=== PATIENT | male | born 1960 | race Caucasian/White ===

== ENCOUNTER → 2016-08-29 | Outpatient (CLI) | payer BC ==
--- NOTE | 2016-08-29 15:31 | CR ---
EXAMINATION: Left hand HISTORY: Pain COMPARISON: None TECHNIQUE: 3 views FINDINGS/IMPRESSION: There is no acute osseous abnormality, dislocation, or fracture identified. Bon e mineralization and joint spaces appear normal. There are early osteoarthritic changes are noted at the first MCP joint.
== END | disposition home or self-care (01) ==
LOC: MW.CHORTHO 07:59
PROVIDERS: ATTEND Orthopaedic Surgery
DX: M79.642 Pain in left hand (principal); M19.042 Primary osteoarthritis, left hand
CPT/HCPCS: 73130-26-LT; 73130-LT

== ENCOUNTER 2017-05-30 08:31 | Day surgery (SDC) | payer BC ==
[~2017-05-30 08:31] MED LIST: Bupivacaine 25%/EPINEPHrine/PF 30 ML ONE
--- NOTE | 2017-05-30 08:59 | PCM.PREANE ---
Preanesthetic Assessment - Anesthesia/Transfusion/Family Hx Anesthesia History: Prior Anesthesia Without Reaction Other Type of Anesthesia Reaction Comment: Bernardo any known problems in past Family History of Anesthesia Reaction: No Transfusion History: No Prior Transfusion(s) - Review of Systems General: No Symptoms Pulmonary: No Symptoms Cardiovascular: No Symptoms Gastrointestinal: No Symptoms Neurological: No Symptoms Other: Reports: None - Physical Assessment NPO Status Date: 05/29/17 Height: 1.52 m Weight: 115.212 kg ASA Class: 2 Mental Status: Alert & Oriented x3 Airway Class: Mallampati = 2 Dentition: Reports: Normal Dentition ROM/Head Extension: Full Lungs: Clear to Auscultation, Normal Respiratory Effort Cardiovascular: Regular Rate, Regular Rhythm - Allergies Allergies/Adverse Reactions: Allergies Allergy/AdvReac Type Severity Reaction Status Date / Time ChloraPrep One [employer] Allergy Burning Uncoded 05/25/16 18:14 - Acknowledgements Anesthesia Type Planned: MAC Pt an Appropriate Candidate for the Planned Anesthesia: Yes Alternatives and Risks of Anesthesia Discussed w Pt/Guardian: Yes Pt/Guardian Understands and Agrees with Anesthesia Plan: Yes Additional Comments: PMH: MO (BMI=49), HTN, snores but denies RONEN PreAnesthesia Questionnaire - Past Health History Medical/Surgical History: Denies Medical/Surgical History HEENT History: Other HEENT History: wears glasses Cardiovascular History: Reports: Hypertension Other Cardiovascular History: heart failure in 2007-from a virus but resolved. efX 55 % in 2007 per patient. Respiratory History: Reports: Other (See Below) Other Respiratory History: Per patient, during wrist surgery in 2016 the bottom part of his lung collapsed. Gastrointestinal History: Genitourinary History: Reports: Other (See Below) Other Genitourinary History: low testosterone Musculoskeletal History: Reports: Fracture Other Musculoskeletal History: hx of fx right wrist, right ankle, fingers Neurological History: Reports: Concussion Other Neuro History: head injury with concussion from fall in 2005, had memory loss that is not fully resolved Psychiatric History: Reports: Anxiety Endocrine/Metabolic History: Reports: Obesity/BMI 30+ Hematologic History: Reports: None Immunologic History: Reports: None Oncologic (Cancer) History: Reports: None Dermatologic History: Reports: None - Past Surgical History HEENT Surgical History: Reports: Tonsillectomy Cardiovascular Surgical History: Reports: Other (See Below) Other Cardiovascular Surgeries/Procedures: Angioplasty in 2008, "all clear" GI Surgical History: Reports: Hernia, Inguinal Other GI Surgeries/Procedures: bilateral Inguinal Hernia Repair with Mesh Musculoskeletal Surgical History: Reports: Arthroscopic Knee, ORIF, Shoulder Replacement, Shoulder Surgery, Other (See Below) Other Musculoskeletal Surgeries/Procedures:: bilateral RTCR (has hardware), ORIF right wrist and right ankle (hardware removed), hx of 8 toenails removed as a child (ingrown) - SUBSTANCE USE Smoking Status *Q: Never Smoker Tobacco Use Within Last Twelve Months: No Second Hand Smoke Exposure: No Days Per Week of Alcohol Use: 0 Recreational Drug Use History: No - HOME MEDS Home Medications: Home Meds traZODone 50 mg PO BEDTIME 05/03/14 [History] Escitalopram [Lexapro] 10 mg PO BEDTIME 05/28/17 [History] Hydrochlorothiazide 25 mg PO QAM 05/28/17 [History] - CURRENT (IN HOUSE) MEDS Current Meds: Current Medications Hydrocodone Bitart/Acetaminophen ([place] 325-5 Mg) 1 tab PO Q4H PRN PRN Reason: Pain Bupivacaine HCl/Epinephrine Bitart (Marcaine 0.25%/Epinephrine 1:200,000) 10 ml INJECT ONETIME ONE Stop: 05/30/17 09:01 Cefazolin Sodium/Dextrose 2 gm (/ Premix) 50 mls @ 100 mls/hr IV ONETIME ONE Stop: 05/30/17 09:29 Lactated Ringer's (Ringers, Lactated) 1,000 mls @ 125 mls/hr IV ASDIRECTED RANDA Last Admin: 05/30/17 08:56 Dose: 125 mls/hr Discontinued Medications Bupivacaine HCl/Epinephrine Bitart (Sensorc Mpf 0.25%-Epi [id number]) Confirm Administered Dose 30 mls @ as directed .ROUTE .STK-MED ONE Stop: 05/30/17 07:28
[2017-05-30] MEDS ORDERED: Bupivacaine 0.25%/EPINEPHrine 1:200,000 10 ML SDV INJECT ONE (09:00)
[2017-05-30] MEDS ORDERED: Acetaminophen/HYDROcodone 325-5 MG Tab PO PRN (09:00)
[2017-05-30] MEDS ORDERED: ceFAZolin 2 GM in Premix Bag 1 BAG IV ONE (09:00)
[2017-05-30] MEDS ORDERED: Lactated Ringers 1,000 ML IV SCH (09:00)
[2017-05-30] MEDS ORDERED: Midazolam 1 MG/ML 2 ML SDV ONE (09:45)
[2017-05-30] MEDS ORDERED: fentaNYL 100 MCG/2 ML SDV ONE (09:45)
[2017-05-30] MEDS ORDERED: Lidocaine 2% 5 ML SDV ONE (09:45)
[2017-05-30] MEDS ORDERED: Propofol 200 MG/20 ML SDV ONE (09:45)
[2017-05-30] MEDS ORDERED: fentaNYL 100 MCG/2 ML SDV IVPUSH PRN (10:54)
--- NOTE | 2017-05-30 11:21 | PCM.POSTAN ---
POST ANESTHESIA ASSESSMENT - MENTAL STATUS Mental Status: Alert, Oriented - RESPIRATORY Respiratory Status: Respiratory Rate WNL, Airway Patent, O2 Saturation Stable - CARDIOVASCULAR CV Status: Pulse Rate WNL, Blood Pressure Stable - GASTROINTESTINAL GI Status: No Symptoms - POST OP HYDRATION Hydration Status: Adequate & Stable
--- NOTE | 2017-05-30 11:38 | PCM48HPAN ---
Post Anesthesia Note - EVALUATION WITHIN 48HRS OF ANESTHETIC Vital Signs in Normal Range: Yes Patient Participated in Evaluation: Yes Respiratory Function Stable: Yes Airway Patent: Yes Cardiovascular Function Stable: Yes Hydration Status Stable: Yes Pain Control Satisfactory: Yes Nausea and Vomiting Control Satisfactory: Yes Mental Status Recovered: Yes
[2017-05-30 13:18] VITALS: BP 136/73
--- NOTE | 2017-05-30 13:36 | PCM.OPNOTE ---
- General Post-Op/Procedure Note Date of Surgery/Procedure: 05/30/17 Operative Procedure(s): left middle and ring finger trigger finger release Pre Op Diagnosis: left middle and ring finger trigger fingers Post-Op Diagnosis: Same Anesthesia Technique: Local, MAC Primary Surgeon: Kiera Cervantes Gate Operator: Yecenia Apodaca Complications: None Condition: Good Free Text/Narrative:: Intake & Output 05/29/17 05/30/17 05/30/17 23:59 07:59 15:59 Intake Total 1400 Balance 1400
--- NOTE | 2017-06-03 00:04 | OR ---
SURGEON: SHAKEEL BARAHONA MD DATE OF PROCEDURE: 05/30/2017 PREOPERATIVE DIAGNOSIS: Left middle and ring finger trigger finger. POSTOPERATIVE DIAGNOSIS: Left middle and ring finger trigger finger. PROCEDURE: Left middle and ring finger trigger finger releases. KITCHEN SUPERVISOR: SAULO Orona. ANESTHESIA: Local MAC. INDICATIONS: Mr. Arriaga is a 57-year-old gentleman seen today in evaluation for left middle and ring finger trigger fingers. Risks and benefits of release were discussed with him and agreed including but not limited to, bleeding, infection, damage to underlying or overlying structures, possible need for future interventions, and possible scarring. PROCEDURE IN DETAIL: After informed consent was obtained, placed on the chart, the patient was brought to the operating theater and laid in supine position. After adequate local MAC anesthesia was obtained, the area was prepped and draped and a time- out was completed to confirm side and site. Attention was then paid to exsanguination of the arm. The tourniquet was insufflated to 200 mmHg. Attention was then paid to dissection over the ring finger and middle finger trigger fingers in a transverse fashion and dissection was carried through the skin and subcutaneous tissues in a similar fashion until direct visualization of the A1 betty. Once breached with a 15 blade, the dissection was carried distally and proximally under direct visualization with care to protect the digital neurovascular bundles. Once adequately released, the tendons were brought through range of motion to ensure no popping, locking, or catching. Once adequately released, they were irrigated, closed using a 5-0 nylon stitch in a horizontal mattress fashion, dressed with Xeroform, fluffs, and a Kerlix gauze dressing and a 2-inch Robbi wrap. The patient tolerated the procedure well, and all counts and needles were correct at the end of the case. FOLLOWUP INSTRUCTIONS: The patient will see us in 10 to 14 days or sooner if any problems, questions, or concerns. RANDY / DA /[id number]
== END 2017-05-30 12:40 | disposition home or self-care (01) ==
LOC: MW.SDS 08:31
PROVIDERS: ATTEND Plastic Surgery
DX: M65.342 Trigger finger, left ring finger (principal); M65.332 Trigger finger, left middle finger; F41.9 Anxiety disorder, unspecified; Z88.8 Allergy status to other drugs, medicaments and biological substances
CPT/HCPCS: 26055; J2250; J3010; J7120; 01810; J2704

== ENCOUNTER 2018-08-13 10:59 | Day surgery (SDC) | payer OTHER ==
[~2018-08-13 10:59] MED LIST changes: -Bupivacaine 25%/EPINEPHrine/PF 30 ML ONE; +Lactated Ringers 1,000 ML IV SCH; +Lidocaine 2% 5 ML SDV ONE; +Propofol 200 MG/20 ML SDV ONE; +fentaNYL 100 MCG/2 ML SDV ONE
[2018-08-13] MEDS ORDERED: fentaNYL 100 MCG/2 ML SDV IVPUSH PRN ×2 (11:39→12:32)
--- NOTE | 2018-08-13 12:11 | PCM.PREANE ---
Preanesthetic Assessment - Anesthesia/Transfusion/Family Hx Anesthesia History: Prior Anesthesia Without Reaction Other Type of Anesthesia Reaction Comment: Bernardo any known problems in past Family History of Anesthesia Reaction: No Transfusion History: No Prior Transfusion(s) Intubation History: Unknown - Review of Systems General: No Symptoms Pulmonary: No Symptoms Cardiovascular: No Symptoms Gastrointestinal: No Symptoms, Other (colon polyps 5 years ago) Neurological: No Symptoms Other: Reports: None - Physical Assessment O2 Sat by Pulse Oximetry: 94 Respiratory Rate: 15 Vital Signs: Last Vital Signs Temp 36.7 C 08/13/18 11:10 Pulse 58 L 08/13/18 11:10 Resp 15 08/13/18 11:10 BP 139/85 08/13/18 11:10 Pulse Ox 94 L 08/13/18 11:10 Height: 1.8 m Weight: 111.13 kg ASA Class: 3 Mental Status: Alert & Oriented x3 Airway Class: Mallampati = 2 Dentition: Reports: Normal Dentition Thyro-Mental Finger Breadths: 3 Mouth Opening Finger Breadths: 2 ROM/Head Extension: Full Lungs: Clear to Auscultation, Normal Respiratory Effort Cardiovascular: Regular Rate, Regular Rhythm - Allergies Allergies/Adverse Reactions: Allergies Allergy/AdvReac Type Severity Reaction Status Date / Time morphine Allergy Hallucinati Verified 08/10/18 12:08 ons ChloraPrep One [employer] Allergy rash/Burnin Uncoded 08/10/18 11:53 g - Blood Blood Available: No - Anesthesia Plan Pre-Op Medication Ordered: None - Acknowledgements Anesthesia Type Planned: MAC Pt an Appropriate Candidate for the Planned Anesthesia: Yes Alternatives and Risks of Anesthesia Discussed w Pt/Guardian: Yes Pt/Guardian Understands and Agrees with Anesthesia Plan: Yes PreAnesthesia Questionnaire - Past Health History Medical/Surgical History: Denies Medical/Surgical History HEENT History: Reports: Other (See Below) Other HEENT History: wears glasses Cardiovascular History: Reports: High Cholesterol, Hypertension Other Cardiovascular History: heart failure at age 47-from a virus but resolved , recent US report was good, went off BP med 2 weeks ago and states his BP has been good Respiratory History: Reports: None Gastrointestinal History: Reports: Colon Polyp Genitourinary History: Reports: None Musculoskeletal History: Reports: Fracture Other Musculoskeletal History: hx of fx right wrist (rt wrist surgery x3), right ankle (rt ankle surgery x2), toe nails removed on both feet, alpa RTCR Neurological History: Reports: Concussion Psychiatric History: Reports: Anxiety Endocrine/Metabolic History: Reports: Obesity/BMI 30+ Hematologic History: Reports: None Immunologic History: Reports: None Oncologic (Cancer) History: Reports: None Dermatologic History: Reports: None - Infectious Disease History Infectious Disease History: Reports: Chicken Pox - Past Surgical History Head Surgeries/Procedures: Reports: None HEENT Surgical History: Reports: Tonsillectomy Cardiovascular Surgical History: Reports: None Respiratory Surgical History: Reports: None GI Surgical History: Reports: Colonoscopy, Hernia Repair/Other Other GI Surgeries/Procedures: Hernia Repair with Mesh Male Surgical History: Reports: None Endocrine Surgical History: Reports: None Neurological Surgical History: Reports: None Musculoskeletal Surgical History: Reports: Arthroscopic Knee, ORIF, Shoulder Replacement, Shoulder Surgery, Other (See Below) Other Musculoskeletal Surgeries/Procedures:: bilateral RTCR (has hardware), ORIF right wrist and right ankle (hardware removed), hx of 8 toenails removed as a child (ingrown), Lt knee arthroscopy, Lt 3rd&4th trigger finger release Dermatological Surgical History: Reports: None - SUBSTANCE USE Smoking Status *Q: Never Smoker Recreational Drug Use History: No - HOME MEDS Home Medications: Home Meds traZODone 50 mg PO BEDTIME 05/03/14 [History] Celecoxib 200 mg PO DAILY 08/10/18 [History] Lisinopril 10 mg PO ASDIRECTED 08/10/18 [History] - CURRENT (IN HOUSE) MEDS Current Meds: Current Medications Fentanyl (Sublimaze) 50 mcg IVPUSH Q5M PRN PRN Reason: Pain Last Admin: 08/13/18 11:49 Dose: 50 mcg Lactated Ringer's (Ringers, Lactated) 1,000 mls @ 125 mls/hr IV ASDIRECTED RANDA Last Admin: 08/13/18 11:40 Dose: 125 mls/hr Discontinued Medications Fentanyl (Sublimaze) Confirm Administered Dose 100 mcg .ROUTE .STK-MED ONE Stop: 08/13/18 07:56 Lidocaine (Xylocaine-Mpf 2%) Confirm Administered Dose 5 ml .ROUTE .STK-MED ONE Stop: 08/13/18 07:56 Propofol (Diprivan 20 Ml) Confirm Administered Dose 400 mg .ROUTE .STK-MED ONE Stop: 08/13/18 07:56
[2018-08-13] MEDS ORDERED: Midazolam 1 MG/ML 2 ML SDV ONE (12:30)
--- NOTE | 2018-08-13 13:25 | PCM.OPNOTE ---
- General Post-Op/Procedure Note Date of Surgery/Procedure: 08/13/18 Operative Procedure(s): Colonoscopy Findings: Sigmoid colon polyp Pre Op Diagnosis: Screening colonoscopy Post-Op Diagnosis: Sigmoid colon polyp Anesthesia Technique: MAC Primary Surgeon: Jordyn Meza [employer] Construction Worker: Stacey Nathan Condition: Good
[2018-08-13] MEDS ORDERED: Ketorolac 30 MG/ML SDV ONE (13:51)
[2018-08-13 14:03] VITALS: BP 136/84
--- NOTE | 2018-08-13 14:09 | PCM48HPAN ---
Post Anesthesia Note - EVALUATION WITHIN 48HRS OF ANESTHETIC Vital Signs in Normal Range: Yes Patient Participated in Evaluation: Yes Respiratory Function Stable: Yes Airway Patent: Yes Cardiovascular Function Stable: Yes Hydration Status Stable: Yes Pain Control Satisfactory: Yes Nausea and Vomiting Control Satisfactory: Yes Mental Status Recovered: Yes Resp Rate: 17 - COMMENTS/OBSERVATIONS Free Text/Narrative:: no anesthesia problems
--- NOTE | 2018-08-13 18:22 | OR ---
SURGEON: JORDYN MEZA MD DATE OF PROCEDURE: 08/13/2018 PREOPERATIVE DIAGNOSIS: Screening colonoscopy. POSTOPERATIVE DIAGNOSIS: Sigmoid colon polyp. PROCEDURE PERFORMED: Screening colonoscopy. ENDOSCOPIST: Jordyn Meza MD. ANESTHESIA: MAC. INSTRUMENT USED: Olympus colonoscope. EXTENT OF EXAM: To the cecum. PREPARATION: Good. LIMITATIONS: None. INDICATION FOR EXAMINATION: The patient is a 58-year-old male who presents for a screening colonoscopy. I explained the procedure, expected perioperative course, and risks including bleeding, infection, damage to surrounding structures including perforation. The patient verbalized understanding and wishes to proceed. PROCEDURE IN DETAIL: The patient was brought to the endoscopy suite and placed in the left lateral decubitus position. A time-out was completed verifying the patient's name, age, date of , allergies, and procedure to be performed. Monitored anesthesia care was induced and continuous oxygen was provided via nasal cannula throughout the procedure. After adequate sedation was achieved, a digital rectal exam was performed. This exam was within normal limits. A well lubricated colonoscope was inserted in the rectum and advanced under direct visualization to the level of cecum. The cecum was identified by both visual and anatomic landmarks. A photograph was taken of the cecal cap, however, I was unable to retroflex the scope within the cecum due to looping of the scope more proximally. The scope was then fully withdrawn while examining the color, texture, anatomy, and integrity of the mucosa from the cecum to the anal canal. The patient had a very small polyp in the very distal sigmoid colon. I could not tell if this was hyperplastic or a tubular adenoma, so I removed it using a cold biopsy forceps. It was labeled as sigmoid colon polyp and sent to pathology. The scope was then brought into the rectum and retroflexed to allow visualization of the anal canal opening. This appeared normal and a photograph was taken. The scope was then straightened out and fully withdrawn. The cecum to anus time was 10 minutes. The patient tolerated the procedure well and was transferred to the PACU in stable condition. ENDOSCOPIC DIAGNOSIS: Sigmoid colon polyp. RECOMMENDATIONS: Follow up in clinic in 2 weeks. MIGUEL ROBERSON /[id number]
== END 2018-08-13 14:15 | disposition home or self-care (01) ==
LOC: MW.SDS 10:59
PROVIDERS: ATTEND Surgery
DX: Z12.11 Encounter for screening for malignant neoplasm of colon (principal); K63.5 Polyp of colon; I10 Essential (primary) hypertension; E66.9 Obesity, unspecified; Z68.34 Body mass index [BMI] 34.0-34.9, adult; F41.9 Anxiety disorder, unspecified; E78.5 Hyperlipidemia, unspecified; Z86.010 Personal history of colon polyps; Z79.899 Other long term (current) drug therapy; Z88.5 Allergy status to narcotic agent; Z88.8 Allergy status to other drugs, medicaments and biological substances
CPT/HCPCS: 45380; J0131; J1885; J2001; J2250; J2704; J3010; J7120

== ENCOUNTER 2018-12-26 10:09 | Emergency (ER) | payer OTHER ==
[2018-12-26] MEDS ORDERED: Morphine 2 MG/ML Syringe IVPUSH ONE ×2 (10:36→11:39)
[2018-12-26] MEDS ORDERED: Ketorolac 30 MG/ML SDV IVPUSH ONE (10:37)
[2018-12-26] MEDS ORDERED: Sodium Chloride 0.9% 1,000 ML IV ONE (10:38)
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
[2018-12-26 10:54] LABS: BLOOD UREA NITROGEN,BUN 19 mg/dL (7.0-18.0); CARBON DIOXIDE,CO2 26.5 mmol/L (21.0-32.0); CHLORIDE,CL 106 mmol/L (98-107); GLUCOSE RANDOM 108 mg/dL (74-106); POTASSIUM,K 4.4 mmol/L (3.5-5.1); SODIUM,NA 140 mmol/L (136-148)
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
[2018-12-26 12:50] VITALS: BP 142/90; PULSE 87
== END 2018-12-26 12:46 | disposition home or self-care (01) ==
LOC: MW.ED 10:09
DX: T75.4XXA Electrocution, initial encounter (principal); E78.00 Pure hypercholesterolemia, unspecified; I10 Essential (primary) hypertension; F41.9 Anxiety disorder, unspecified; Z88.8 Allergy status to other drugs, medicaments and biological substances; Z79.899 Other long term (current) drug therapy; W86.8XXA Exposure to other electric current, initial encounter
CPT/HCPCS: 36415; 71045; 80053; 81003; 82550; 84484; 85025; 93005; 96361; 96374; 96375; 96376; 99284; J1885; J2270; J7040

== ENCOUNTER 2019-01-23 11:25 | Observation (INO) | payer OTHER ==
[2019-01-23] MEDS ORDERED: Aspirin 81 MG Tab.Chew PO ONE (11:41)
[2019-01-23] MEDS ORDERED: Aspirin 81 MG Tab.Chew ONE (11:42)
[2019-01-23] MEDS ORDERED: Morphine 2 MG/ML Syringe IVPUSH ONE (11:51)
[2019-01-23] MEDS ORDERED: Nitroglycerin 0.4 MG Tab.SL ONE (11:52)
[2019-01-23] MEDS ORDERED: Morphine 2 MG/ML Syringe ONE (11:52)
[2019-01-23] MEDS ORDERED: Ondansetron 4 MG/2 ML SDV ONE (11:54)
[2019-01-23] MEDS: Nitroglycerin 0.4 MG Tab.SL SL PRN ×3 (11:55→12:08)
[2019-01-23] MEDS ORDERED: Labetalol 100 MG/20 ML MDV ONE (11:55)
[2019-01-23] MEDS ORDERED: Ondansetron 4 MG/2 ML SDV IVPUSH ONE (12:04)
[2019-01-23] MEDS ORDERED: oxyCODONE 5 MG Tab PO PRN (12:10)
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
[2019-01-23 12:28] LABS: BLOOD UREA NITROGEN,BUN 27 mg/dL (7.0-18.0); CARBON DIOXIDE,CO2 24.1 mmol/L (21.0-32.0); CHLORIDE,CL 106 mmol/L (98-107); GLUCOSE RANDOM 108 mg/dL (74-106); POTASSIUM,K 4.2 mmol/L (3.5-5.1); SODIUM,NA 141 mmol/L (136-148)
[2019-01-23] MEDS ORDERED: Sodium Chloride 0.9% 1,000 ML IV ONE (12:35)
--- NOTE | 2019-01-23 12:47 | CR ---
INDICATION: Shortness of breath TECHNIQUE: Single view chest. FINDINGS: The lungs are clear. The heart, mediastinum and pulmonary vessels are of normal size. There is no evidence of pleural disease. Low lung volumes IMPRESSION: Negative chest. Dictated by Faustina Gold MD @ Jan 23 2019 12:46PM Signed by Dr. Faustina Gold @ Jan 23 2019 12:46PM
[2019-01-23] MEDS: LORazepam 1 MG Tab PO PRN ×2 (12:56→18:15)
[2019-01-23] MEDS ORDERED: Acetaminophen/HYDROcodone 325-7.5 MG Tab PO PRN (13:03)
[2019-01-23] MEDS: Morphine 2 MG/ML Syringe IVPUSH PRN ×3 (16:40→21:16)
[2019-01-23] MEDS ORDERED: traZODone 50 MG Tab PO SCH (21:00)
[2019-01-24] MEDS: Morphine 2 MG/ML Syringe IVPUSH PRN (00:10)
[2019-01-24] MEDS: LORazepam 1 MG Tab PO PRN (03:46)
[2019-01-24 06:46] LABS: BLOOD UREA NITROGEN,BUN 20 mg/dL (7.0-18.0); CARBON DIOXIDE,CO2 27.2 mmol/L (21.0-32.0); CHLORIDE,CL 106 mmol/L (98-107); GLUCOSE RANDOM 97 mg/dL (74-106); POTASSIUM,K 4.1 mmol/L (3.5-5.1); SODIUM,NA 139 mmol/L (136-148)
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
[2019-01-24 09:39] VITALS: BP 134/91
[2019-01-24] MEDS ORDERED: Cyclobenzaprine 10 MG Tab PO ONE (11:08)
[2019-01-24] MEDS ORDERED: Cyclobenzaprine 10 MG Tab ONE (11:23)
== END 2019-01-24 11:10 | disposition home or self-care (01) ==
LOC: MW.ED 11:25 → MW.MS 11:49
PROVIDERS: ADMIT Internal Medicine; ATTEND Internal Medicine
DX: R07.89 Other chest pain (principal); I11.0 Hypertensive heart disease with heart failure; I50.9 Heart failure, unspecified; F41.9 Anxiety disorder, unspecified; E78.00 Pure hypercholesterolemia, unspecified; G43.909 Migraine, unspecified, not intractable, without status migrainosus; E66.9 Obesity, unspecified; Z68.32 Body mass index [BMI] 32.0-32.9, adult; Z79.899 Other long term (current) drug therapy; Z88.8 Allergy status to other drugs, medicaments and biological substances
CPT/HCPCS: 36415; 71045; 80053; 83880; 84484; 85025; 93005; 96361; 96374; 96375; 96376; 99285; A9270; G0378; J2270; J2405; J3490; J7040

== ENCOUNTER 2019-05-30 20:56 | Emergency (ER) | payer OTHER ==
[2019-05-30] MEDS ORDERED: Morphine 4 MG/ML Syringe IVPUSH ONE (21:44)
[2019-05-30] MEDS ORDERED: Ondansetron 4 MG/2 ML SDV IVPUSH ONE (21:45)
[2019-05-30 22:22] LABS: BLOOD UREA NITROGEN,BUN 20 mg/dL (7.0-18.0); CARBON DIOXIDE,CO2 26.7 mmol/L (21.0-32.0); CHLORIDE,CL 105 mmol/L (98-107); GLUCOSE RANDOM 125 mg/dL (74-106); LIPASE 128 U/L (73-393); POTASSIUM,K 4.1 mmol/L (3.5-5.1); SODIUM,NA 140 mmol/L (136-148)
[2019-05-30] MEDS ORDERED: Iopamidol 755 Mg/ML 100 ML Bottle IVPUSH ONE (22:26)
--- NOTE | 2019-05-30 22:51 | CT ---
INDICATION: Right upper quadrant pain, worse with coughing TECHNIQUE: CT Abdomen and pelvis with i.v. contrast. Coronal and sagittal reformats were obtained. CONTRAST: 100 mL Isovue 370 COMPARISON: 11/27/2018 FINDINGS: Lower chest: Unremarkable. Liver: Unremarkable. Spleen: Unremarkable. Pancreas: Unremarkable. Gallbladder: Unremarkable. Kidney: Unremarkable. No kidney or ureteral stones or obstruction seen. Adrenal: Unremarkable. Bowel: Unremarkable. The appendix is normal in appearance and size. Vascular: Unremarkable. Lymph: Unremarkable. Peritoneum: Unremarkable. No pneumoperitoneum is seen. No significant ascites is noted. Pelvis: Unremarkable. Soft tissue: Unremarkable. Bone: Unremarkable for age. IMPRESSION: 1. Unremarkable with no CT correlate for the patient`s symptoms seen. Dictated by Jam Alfonso MD @ 05/30/2019 10:49:51 PM Please note that all CT scans at this facility use dose modulation, iterative reconstruction, and/or weight-based dosing when appropriate to reduce radiation dose to as low as reasonably achievable. Dictated by: Jam Alfonso MD @ 05/30/2019 22:50:30 (Electronically Signed)
--- NOTE | 2019-05-30 22:53 | CR ---
INDICATION: chest pain TECHNIQUE: Chest radiograph 1 view COMPARISON: 01/23/19 FINDINGS: Moderate degradation of image quality noted due to body habitus. Mediastinum: The mediastinum is normal in appearance. The heart silhouette is normal in size and morphology. Lung: Mild bibasilar subsegmental atelectasis is noted with small lung volumes. No sign of pleural effusion seen. No pneumothorax is identified. Bone and Soft tissue: Unremarkable for age. IMPRESSION: 1. Mild bibasilar subsegmental atelectasis is noted with small lung volumes. Dictated by: Jam Alfonso MD @ 05/30/2019 22:51:14 (Electronically Signed)
--- NOTE | 2019-05-31 00:22 | EDM.PDOC ---
ED HPI GENERAL MEDICAL PROBLEM - General Chief Complaint: Abdominal Pain Stated Complaint: SEVERE ABDOMINAL PAIN Time Seen by Provider: 05/30/19 21:00 Source of Information: Reports: Patient History Limitations: Reports: No Limitations - History of Present Illness INITIAL COMMENTS - FREE TEXT/NARRATIVE: Patient is a 59-year-old gentleman with severe right upper quadrant pain. Patient has pain with movement or with pressing the area. Patient denies nausea and vomiting at this time Onset: Today Duration: Day(s): Location: Reports: Chest Quality: Reports: Burning Severity: Moderate Improves with: Reports: None Worsens with: Reports: None Context: Reports: Activity Associated Symptoms: Reports: No Other Symptoms, Chest Pain RUQ Pain Score (Numeric/FACES): 2 - Related Data Allergies Allergy/AdvReac Type Severity Reaction Status Date / Time ChloraPrep [employer] Allergy rash/Burnin Uncoded 01/23/19 12:47 g Home Meds: Home Meds traZODone 50 mg PO BEDTIME 05/03/14 [History] predniSONE [Prednisone] 05/30/19 [History] Past Medical History - Past Health History Medical/Surgical History: Denies Medical/Surgical History HEENT History: Reports: Other (See Below) Other HEENT History: wears glasses Cardiovascular History: Reports: High Cholesterol, Hypertension Other Cardiovascular History: heart failure at age 47-from a virus but resolved , recent US report was good, went off BP med 2 weeks ago and states his BP has been good Respiratory History: Reports: None Gastrointestinal History: Reports: Colon Polyp Genitourinary History: Reports: None Musculoskeletal History: Reports: Fracture Other Musculoskeletal History: hx of fx right wrist (rt wrist surgery x3), right ankle (rt ankle surgery x2), toe nails removed on both feet, alpa RTCR Neurological History: Reports: Concussion, Migraines Psychiatric History: Reports: Anxiety Endocrine/Metabolic History: Reports: Obesity/BMI 30+ Hematologic History: Reports: None Immunologic History: Reports: None Oncologic (Cancer) History: Reports: None Dermatologic History: Reports: None - Infectious Disease History Infectious Disease History: Reports: Chicken Pox, Measles - Past Surgical History Head Surgeries/Procedures: Reports: None HEENT Surgical History: Reports: Tonsillectomy Cardiovascular Surgical History: Reports: None Respiratory Surgical History: Reports: None GI Surgical History: Reports: Colonoscopy, Hernia Repair/Other Other GI Surgeries/Procedures: Hernia Repair with Mesh Male Surgical History: Reports: None Endocrine Surgical History: Reports: None Neurological Surgical History: Reports: None Musculoskeletal Surgical History: Reports: Arthroscopic Knee, ORIF, Shoulder Replacement, Shoulder Surgery, Other (See Below) Other Musculoskeletal Surgeries/Procedures:: bilateral RTCR (has hardware), ORIF right wrist and right ankle (hardware removed), hx of 10 toenails removed as a child (ingrown), Lt knee arthroscopy, Lt 3rd&4th trigger finger release Dermatological Surgical History: Reports: None Social & Family History - Family History Family Medical History: Noncontributory Cardiac: Reports: Bypass, Other (See Below) Other Cardiac Family History: heart disease, quad. bypass Endocrine/Metabolic: Reports: Diabetes, Type I Other Endocrine/Metabolic Family History: adult onset - Tobacco Use Smoking Status *Q: Never Smoker - Caffeine Use Caffeine Use: Reports: Energy Drinks Caffeine Use Comment: 1 drink/day - Recreational Drug Use Recreational Drug Use: No ED ROS GENERAL - Review of Systems Review Of Systems: Comprehensive ROS is negative, except as noted in HPI. Constitutional: Reports: No Symptoms HEENT: Reports: No Symptoms Respiratory: Reports: No Symptoms Cardiovascular: Reports: No Symptoms Endocrine: Reports: No Symptoms GI/Abdominal: Reports: No Symptoms : Reports: No Symptoms Musculoskeletal: Reports: No Symptoms Skin: Reports: No Symptoms Neurological: Reports: No Symptoms Psychiatric: Reports: No Symptoms Hematologic/Lymphatic: Reports: No Symptoms Immunologic: Reports: No Symptoms ED EXAM, GI/ABD - Physical Exam Exam: See Below Exam Limited By: No Limitations General Appearance: Alert, WD/WN, No Apparent Distress Ears: Normal External Exam, Normal Canal, Hearing Grossly Normal, Normal TMs Nose: Normal Inspection Throat/Mouth: Normal Inspection, Normal Lips, Normal Oropharynx Head: Atraumatic, Normocephalic, Other Neck: Normal Inspection Respiratory/Chest: No Respiratory Distress, Lungs Clear, Normal Breath Sounds, No Accessory Muscle Use, Chest Non-Tender Cardiovascular: Normal Peripheral Pulses, No JVD, No Murmur GI/Abdominal Exam: Normal Bowel Sounds, No Organomegaly (Severe right upper quadrant tenderness patient.), Tender (Male) Exam: Deferred Rectal (Males) Exam: Deferred Back Exam: Normal Inspection, Full Range of Motion Extremities: Normal Inspection, Normal Range of Motion Neurological: Alert, Oriented, CN II-XII Intact, Normal Cognition, Normal Gait Psychiatric: Normal Affect, Normal Mood Skin Exam: Warm, Dry, Intact, Normal Color Lymphatic: No Adenopathy Course - Vital Signs Last Recorded V/S: Last Vital Signs Temp Pulse 64 05/30/19 21:24 Resp 18 05/30/19 21:24 BP 158/84 H 05/30/19 21:24 Pulse Ox 94 L 05/30/19 21:24 - Orders/Labs/Meds Labs: Laboratory Tests 05/30/19 05/30/19 05/30/19 Range/Units 21:50 21:50 21:50 WBC 4.65 (4.0-11.0) K/uL RBC 5.35 (4.50-5.90) M/uL Hgb 16.0 (13.0-17.0) g/dL Hct 46.2 (38.0-50.0) % MCV 86.4 (80.0-98.0) fL MCH 29.9 (27.0-32.0) pg MCHC 34.6 (31.0-37.0) g/dL RDW Std Deviation 41.9 (28.0-62.0) fl RDW Coeff of Blake 13 (11.0-15.0) % Plt Count 169 (150-400) K/uL MPV 10.80 (7.40-12.00) fL Neut % (Auto) 58.1 (48.0-80.0) % Lymph % (Auto) 28.6 (16.0-40.0) % Yell % (Auto) 13.1 (0.0-15.0) % Eos % (Auto) 0.0 (0.0-7.0) % Baso % (Auto) 0.2 (0.0-1.5) % Neut # (Auto) 2.7 (1.4-5.7) K/uL Lymph # (Auto) 1.3 (0.6-2.4) K/uL Yell # (Auto) 0.6 (0.0-0.8) K/uL Eos # (Auto) 0.0 (0.0-0.7) K/uL Baso # (Auto) 0.0 (0.0-0.1) K/uL Nucleated RBC % 0.0 /100WBC Nucleated RBCs # 0 K/uL Lactate 1.7 (0.20-2.00) mmol/L Sodium 140 (136-148) mmol/L Potassium 4.1 (3.5-5.1) mmol/L Chloride 105 (98-107) mmol/L Carbon Dioxide 26.7 (21.0-32.0) mmol/L BUN 20 H (7.0-18.0) mg/dL Creatinine 1.0 (0.8-1.3) mg/dL Est Cr Clr Drug Dosing 86.80 mL/min Estimated GFR (MDRD) > 60.0 ml/min Glucose 125 H (74-106) mg/dL Calcium 8.4 L (8.5-10.1) mg/dL Total Bilirubin 0.2 (0.2-1.0) mg/dL AST 24 (15-37) IU/L ALT 57 (14-63) IU/L Alkaline Phosphatase 78 (46-116) U/L Total Protein 6.9 (6.4-8.2) g/dL Albumin 3.5 (3.4-5.0) g/dL Globulin 3.4 (2.6-4.0) g/dL Albumin/Globulin Ratio 1.0 (0.9-1.6) Lipase 128 (73-393) U/L Meds: Medications Discontinued Medications Generic Name Dose Route Start Last Admin Trade Name Freq PRN Reason Stop Dose Admin Iopamidol 100 ml 05/30/19 22:26 05/30/19 22:27 Isovue-370 (76%) IVPUSH 05/30/19 22:27 100 ml ONETIME ONE Administration Morphine Sulfate 4 mg 05/30/19 21:44 05/30/19 21:57 Morphine IVPUSH 05/30/19 21:45 4 mg ONETIME ONE Administration Ondansetron HCl 4 mg 05/30/19 21:45 05/30/19 21:56 Zofran IVPUSH 05/30/19 21:46 4 mg ONETIME ONE Administration Departure - Departure Time of Disposition: 00:21 Disposition: Home, Self-Care 01 Condition: Good Clinical Impression: Spasm, Abdominal pain - Discharge Information Instructions: Abdominal Pain, Adult, [id number] Referrals: Malini Johnson MD [Primary Care Provider] - Sepsis Event Note - Evaluation Sepsis Screening Result: No Definite Risk - Focused Exam Vital Signs: Vital Signs Pulse Resp BP Pulse Ox 05/30/19 21:24 64 18 158/84 H 94 L Date Exam was Performed: 05/31/19 Time Exam was Performed: 00:18
[2019-05-31] MEDS ORDERED: Diazepam 5 MG Tab PO ONE (00:23)
[2019-05-31 00:56] VITALS: BP 156/94; PULSE 65
== END 2019-05-31 00:32 | disposition home or self-care (01) ==
LOC: MW.ED 20:56
DX: M62.838 Other muscle spasm (principal); R10.11 Right upper quadrant pain; Z88.8 Allergy status to other drugs, medicaments and biological substances
CPT/HCPCS: 36415; 71045; 74177; 80053; 83605; 83690; 85025; 96374; 96375; 99284; J2270; J2405; Q9967; 99283

== ENCOUNTER 2019-06-24 06:32 | Inpatient (IN) | payer OTHER ==
[~2019-06-24 06:32] MED LIST changes: -Lactated Ringers 1,000 ML IV SCH; -Lidocaine 2% 5 ML SDV ONE; -Propofol 200 MG/20 ML SDV ONE; +Sodium Chloride 0.9% 10 ML SDV IV PRN; +Sodium Chloride 0.9% 10 ML Syringe FLUSH PRN; +Sodium Chloride 0.9% 2.5 ML Syringe FLUSH PRN; +ceFAZolin 2 GM in Premix Bag 1 BAG IV ONE; -fentaNYL 100 MCG/2 ML SDV ONE
[2019-06-24] MEDS: Lactated Ringers 1,000 ML IV SCH ×2 (06:50→19:35)
[2019-06-24] MEDS ORDERED: Sugammadex Sodium 200 MG/2 ML VIAL ONE (07:21)
[2019-06-24] MEDS ORDERED: fentaNYL 50 MCG/ML SDV IVPUSH ONE (07:23)
[2019-06-24] MEDS ORDERED: Scopolamine 1.5 MG Transdermal Patch TRDERM PRN (07:23)
--- NOTE | 2019-06-24 07:25 | PCM.PREANE ---
Preanesthetic Assessment - Anesthesia/Transfusion/Family Hx Anesthesia History: Prior Anesthesia Without Reaction Other Type of Anesthesia Reaction Comment: Bernardo any known problems in past Family History of Anesthesia Reaction: No Transfusion History: No Prior Transfusion(s) Intubation History: Unknown - Review of Systems General: No Symptoms Pulmonary: No Symptoms Cardiovascular: No Symptoms Gastrointestinal: No Symptoms Neurological: Headache Other: Reports: None - Physical Assessment NPO Status Date: 06/23/19 NPO Status Time: 11:59 Vital Signs: Last Vital Signs Temp 97.2 F 06/24/19 06:39 Pulse 65 06/24/19 06:39 Resp 18 06/24/19 06:39 BP 158/95 H 06/24/19 06:39 Pulse Ox 95 06/24/19 06:39 Height: 5 ft 11 in Weight: 115.212 kg ASA Class: 2 Mental Status: Alert & Oriented x3 Airway Class: Mallampati = 1 Dentition: Reports: Normal Dentition (chipped incisor) ROM/Head Extension: Full Lungs: Clear to Auscultation, Normal Respiratory Effort Cardiovascular: Regular Rate, Regular Rhythm - Allergies Allergies/Adverse Reactions: Allergies Allergy/AdvReac Type Severity Reaction Status Date / Time morphine Allergy Hallucinati Verified 06/18/19 07:01 ons ChloraPrep [employer] Allergy rash/Burnin Uncoded 01/23/19 12:47 g - Blood Blood Available: No - Anesthesia Plan Pre-Op Medication Ordered: None - Acknowledgements Anesthesia Type Planned: General Anesthesia Pt an Appropriate Candidate for the Planned Anesthesia: Yes Alternatives and Risks of Anesthesia Discussed w Pt/Guardian: Yes Pt/Guardian Understands and Agrees with Anesthesia Plan: Yes PreAnesthesia Questionnaire - Past Health History Medical/Surgical History: Denies Medical/Surgical History HEENT History: Reports: Other (See Below) Other HEENT History: wears glasses Cardiovascular History: Reports: High Cholesterol, Hypertension Other Cardiovascular History: heart failure at age 47-from a virus but resolved , recent US report was good, went off BP med 2 weeks ago and states his BP has been good Respiratory History: Reports: None Gastrointestinal History: Reports: Colon Polyp Genitourinary History: Reports: None Musculoskeletal History: Reports: Fracture Other Musculoskeletal History: hx of fx right wrist (rt wrist surgery x3), right ankle (rt ankle surgery x2), toe nails removed on both feet, alpa RTCR Neurological History: Reports: Concussion, Migraines Psychiatric History: Reports: Anxiety Endocrine/Metabolic History: Reports: Obesity/BMI 30+ Hematologic History: Reports: None Immunologic History: Reports: None Oncologic (Cancer) History: Reports: None Dermatologic History: Reports: None - Infectious Disease History Infectious Disease History: Reports: Chicken Pox, Measles - Past Surgical History Head Surgeries/Procedures: Reports: None HEENT Surgical History: Reports: Tonsillectomy Cardiovascular Surgical History: Reports: None Respiratory Surgical History: Reports: None GI Surgical History: Reports: Colonoscopy, Hernia Repair/Other Other GI Surgeries/Procedures: Hernia Repair with Mesh Male Surgical History: Reports: None Endocrine Surgical History: Reports: None Neurological Surgical History: Reports: None Musculoskeletal Surgical History: Reports: Arthroscopic Knee, ORIF, Shoulder Replacement, Shoulder Surgery, Other (See Below) Other Musculoskeletal Surgeries/Procedures:: bilateral RTCR (has hardware), ORIF right wrist and right ankle (hardware removed), hx of 10 toenails removed as a child (ingrown), Lt knee arthroscopy, Lt 3rd&4th trigger finger release Oncologic Surgical History: Reports: None Dermatological Surgical History: Reports: None - SUBSTANCE USE Smoking Status *Q: Never Smoker Recreational Drug Use History: No - HOME MEDS Home Medications: Home Meds traZODone 50 mg PO BEDTIME 05/03/14 [History] Celecoxib 200 mg PO DAILY PRN 06/18/19 [History] Lisinopril [Zestril] 10 mg PO BEDTIME 06/18/19 [History] - CURRENT (IN HOUSE) MEDS Current Meds: Current Medications Fentanyl (Fentanyl) 50 mcg IVPUSH ONETIME ONE Stop: 06/24/19 07:24 Lactated Ringer's (Ringers, Lactated) 1,000 mls @ 125 mls/hr IV ASDIRECTED RANDA Last Admin: 06/24/19 06:50 Dose: 125 mls/hr Scopolamine (Transderm-Scop) 1.5 mg TRDERM Q72H PRN PRN Reason: Nausea/Vomiting Sodium Chloride (Saline Flush) 10 ml FLUSH ASDIRECTED PRN PRN Reason: Keep Vein Open Sodium Chloride (Saline Flush) 2.5 ml FLUSH ASDIRECTED PRN PRN Reason: Keep Vein Open Sodium Chloride (Normal Saline) 10 ml IV ASDIRECTED PRN PRN Reason: IV Use Discontinued Medications Cefazolin Sodium/Dextrose 2 gm (/ Premix) 50 mls @ 100 mls/hr IV ONETIME ONE Stop: 06/21/19 13:48
[2019-06-24] MEDS ORDERED: Midazolam 1 MG/ML 2 ML SDV ONE (07:28)
[2019-06-24] MEDS ORDERED: Propofol 200 MG/20 ML SDV ONE (07:28)
[2019-06-24] MEDS ORDERED: Rocuronium 100 MG/10 ML Syringe ONE (07:29)
[2019-06-24] MEDS ORDERED: Dexamethasone 4 MG/ML 5 ML MDV ONE (07:29)
[2019-06-24] MEDS ORDERED: Lidocaine 2% 5 ML SDV ONE (07:29)
[2019-06-24] MEDS ORDERED: Ondansetron 4 MG/2 ML SDV ONE ×2 (07:29→10:27)
[2019-06-24] MEDS ORDERED: fentaNYL 250 MCG/5 ML SDV ONE ×3 (07:29→09:13)
[2019-06-24] MEDS ORDERED: fentaNYL 100 MCG/2 ML SDV ONE (07:30)
[2019-06-24] MEDS ORDERED: Bupivacaine 0.5% 30 ML SDV ONE ×2 (07:32→09:34)
[2019-06-24] MEDS ORDERED: ceFAZolin 1 GM Vial ONE ×2 (07:46→09:34)
[2019-06-24] MEDS ORDERED: Sodium Chloride 0.9% 20 ML ONE (07:46)
[2019-06-24] MEDS ORDERED: Phenylephrine/Normal Saline 100 MCG/ML 10 ML Syringe ONE (08:45)
--- NOTE | 2019-06-24 10:54 | PCM.OPNOTE ---
- General Post-Op/Procedure Note Date of Surgery/Procedure: 06/24/19 Operative Procedure(s): Excision left abdominal wall lipoma, laparoscopic converted to open cholecystectomy , lysis of intra-abdominal adhesions Findings: 3 x 2 x 0.5 lipoma in left upper quadrant abdominal wall. Liver capsule adhesions to abdominal wall. Gallbladder encase in dense omental adhesions. Pre Op Diagnosis: Abdominal wall mass, symptomatic cholelithiasis Post-Op Diagnosis: Liver capsule adhesions, chronic cholecystitis, lipoma Anesthesia Technique: General ET Tube Primary Surgeon: Jordyn Meza Secondary Surgeon: Kenny Busby Fluid Replacement, Intraop: 1,600 Output, Urine Amount: 300 EBL in mLs: 200 Surgical Drain/Tube Type: Jose Drain Condition: Good
[2019-06-24] MEDS ORDERED: Acetaminophen/HYDROcodone 325-5 MG Tab PO PRN (10:55)
[2019-06-24] MEDS ORDERED: Octyl 2-Cyanoacrylate 1 Tube ONE (11:03)
[2019-06-24] MEDS ORDERED: Metoprolol Tartrate 5 MG in Sodium Chloride 0.9% 50 ML IV ONE (11:10)
[2019-06-24] MEDS ORDERED: Acetaminophen 1,000 MG in Premix Bag 1 BAG IV ONE (11:10)
[2019-06-24] MEDS ORDERED: HYDROmorphone 2 MG/ML Syringe IVPUSH ONE (11:15)
[2019-06-24] MEDS ORDERED: Metoprolol Tartrate 5 MG/5 ML SDV IV ONE (11:30)
--- NOTE | 2019-06-24 12:36 | PCM.POSTAN ---
POST ANESTHESIA ASSESSMENT - MENTAL STATUS Mental Status: Alert, Oriented - VITAL SIGNS Vital Signs: Last Vital Signs Temp 98.8 F 06/24/19 11:01 Pulse 76 06/24/19 12:15 Resp 11 L 06/24/19 12:15 BP 145/80 H 06/24/19 12:15 Pulse Ox 97 06/24/19 12:15 - RESPIRATORY Respiratory Status: Respiratory Rate WNL, Airway Patent, O2 Saturation Stable - CARDIOVASCULAR CV Status: Pulse Rate WNL, Blood Pressure Stable - GASTROINTESTINAL GI Status: No Symptoms - PAIN Pain Score: 5 - POST OP HYDRATION Hydration Status: Adequate & Stable - OBSERVATIONS Free Text/Narrative:: Being sent to the floor with continuous pulse oximetry.
[2019-06-24] MEDS: HYDROmorphone 2 MG/ML Syringe IVPUSH PRN ×5 (13:25→21:49)
[2019-06-24] MEDS: diphenhydrAMINE 50 MG/ML SDV IVPUSH PRN (15:39)
[2019-06-24] MEDS: Cyclobenzaprine 10 MG Tab PO SCH ×2 (15:46→21:35)
[2019-06-24] MEDS: Lisinopril 10 MG Tab PO SCH (18:17)
[2019-06-24] MEDS ORDERED: Promethazine 25 MG/ML SDV IM PRN (18:25)
[2019-06-24] MEDS ORDERED: Ondansetron 4 MG/2 ML SDV IVPUSH PRN (18:25)
--- NOTE | 2019-06-24 18:38 | OR ---
SURGEON: JORDYN CROOKS MD DATE OF PROCEDURE: 06/24/2019 PREOPERATIVE DIAGNOSES: 1. Left upper quadrant abdominal wall mass. 2. Symptomatic cholelithiasis. POSTOPERATIVE DIAGNOSES: 1. Hepatic capsular adhesions. 2. Lipoma. 3. Chronic cholecystitis with cholelithiasis. PROCEDURES PERFORMED: 1. Excision of left upper quadrant lipoma. 2. Lysis of adhesions. 3. Laparoscopic, converted to open, cholecystectomy. PRIMARY SURGEON: Jordyn Crooks MD. SECONDARY SURGEON: Kenny Busby MD. ANESTHESIA: General endotracheal anesthesia. FLUIDS: 1300 mL of crystalloid. ESTIMATED BLOOD LOSS: 200 mL. URINE OUTPUT: 300 mL. FINDINGS: 3 x 2 x 0.5 cm lipoma in the left upper quadrant of the abdominal subcutaneous fat. Multiple capsular adhesions from the liver to the anterior abdominal wall. Grossly inflamed gallbladder encased in omentum. COMPLICATIONS: None. INDICATIONS: The patient is a 59-year-old male who presents with a left upper quadrant wall mass as well as symptomatic cholelithiasis. I explained the need for an excision of this mass as well as a laparoscopic, possible open, cholecystectomy. I explained these procedures in detail. I explained the expected perioperative course as well as the risks including bleeding, infection, or damage to surrounding structures. The patient verbalized understanding and wishes to proceed. PROCEDURE IN DETAIL: The patient was brought into the OR and placed on the OR table in supine position. A time-out was completed verifying the patient's name, age, date of , allergies, and procedure to be performed. General endotracheal anesthesia was induced. The left arm was tucked to the patient's side and a Negrete catheter placed. The abdomen was then prepped and draped in usual standard fashion. I first turned my attention to the left upper quadrant abdominal wall mass. This had been preoperatively marked before the procedure. I anesthetized the area around it with 0.5% Marcaine plain. A 15 blade was used to make an incision over the top of this mass. Cautery was used to dissect down to the level of the subcutaneous fat. I immediately encountered a fatty appearing mass consistent with a lipoma. I dissected this bluntly using finger dissection from the surrounding tissues. Cautery was used to undermine the lesion. It was then passed off the field. It was measured and found to be 3 x 2 x 0.5 cm in size. It was sent to pathology, labeled as left upper quadrant abdominal wall lipoma. Hemostasis was achieved with electrocautery. The wound was closed with interrupted 3-0 Vicryl in the subcutaneous fat layer and the skin was closed with running 4-0 Monocryl stitch. I then began the cholecystectomy portion of the case. I anesthetized the supraumbilical area with 0.5% Marcaine plain. An incision was made along the supraumbilical midline with an 11 blade. Cautery was used to dissect down to the level of subcutaneous fat. I bluntly dissected down to the level of fascia. The fascia was elevated with Rebecca's and incised sharply with curved Wong scissors. The peritoneum was identified. This was elevated and incised sharply using Metzenbaum scissors. Entry into the abdomen was palpated digitally. Stay sutures were placed on either side of the fascia using 0 Vicryl suture. A 12 mm Tonny trocar was inserted in the abdomen and the abdomen insufflated. I inserted a 5 mm 30- degree scope and inspected the area underneath my initial trocar placement. No damage to surrounding structures was noted. The patient was placed in reverse Trendelenburg position and airplaned slightly to the left. Upon inspecting the right upper quadrant, I noticed the patient to have multiple adhesions along the anterior liver surface to the anterior abdominal wall. 5 mm trocars were placed in the following locations under direct visualization; one in the right upper quadrant, one in the right flank, and one 2 fingerbreadths below the right subcostal margin in the midclavicular line. In order to mobilize the gallbladder safely, I decided to take down the adhesions along the anterior liver capsule. Using hook cautery as well as laparoscopic scissors, I took down these adhesions. I took down as many as I could. In one area, a tiny capsular tear was made. A piece of Surgicel was placed in this area and hemostasis was achieved. Once I had taken down enough adhesions that I felt I could safely move the gallbladder, I grasped the dome of the gallbladder with an atraumatic grasper and elevated it cranially. The gallbladder itself was encased in omentum. This was densely adhered to the gallbladder wall. I attempted to take this down using gentle blunt dissection as well as hook cautery, but was unable to do so. I attempted to lift the gallbladder up to identify the infundibulum, but I was unable to see the proximal half of the gallbladder due to the dense omental adhesions and inflammation. The decision was made to convert to open. Dr. Kenny Busby was asked to assist in the case. The 5 mm trocars as well as the 12 mm trocar were removed. I closed the supraumbilical fascia using my interrupted 0 Vicryl sutures. I turned my attention to the right upper quadrant. I made a right upper quadrant oblique incision 2 fingerbreadths below the right subcostal margin, making sure to include my epigastric and subcostal port site into the incision. Cautery was used to dissect down through the layers of the abdominal wall until I reached the peritoneum. The peritoneum was elevated with hemostats and incised sharply with the Metzenbaum scissors. I then carried my incision medially and laterally after ensuring safe entry into the abdomen. Rolled moistened laps were then placed in the abdomen and retractors were placed exposing the gallbladder. A Harmonic scalpel device was used to take down the omental adhesions from distal to proximal. As we came down upon the infundibulum, the gallbladder was grasped with Halie clamps and elevated. Dissection along the proximal portion of the gallbladder was then undertaken using blunt dissection with a right angle and a Kittner. We were able to clear away the tissues along the cystic duct and a small vascular structure next to it. They were clearly going into the gallbladder. These were doubly clipped and ligated using a 5 mm clip scrap piler. We attempted to clear away more of the proximal cystic plate, but were unable to do so. Instead, we then turned our attention to the dome of the gallbladder. Using sharp Metzenbaum scissors as well as the Harmonic scalpel device, we were able to then create a plane between the gallbladder and the cystic plate. This was carried down proximally. Once we reached the proximal portion of the gallbladder wall, we identified what appeared to be our true cystic artery. The vessel we had dissected before was a small vascular branch. We doubly clipped and ligated the cystic artery. We then used blunt dissection to take down the rest of the adhesions around this area. The gallbladder was then passed off the field and sent to pathology. Pressure was then held within the gallbladder fossa for 2 minutes. After doing this, we placed Surgicel, Avitene, and Jazmyn into the wound and held pressure. This gave us a more hemostatic field. A 19- [place] round Jose drain was then brought out through the right flank port site and the drain was placed into the gallbladder fossa. The drain was secured to the skin using a 2-0 silk suture. I then closed the supraumbilical port site with interrupted 3-0 Vicryl suture and skin german. We irrigated the abdomen with normal saline, Ancef solution. We then began to close the abdominal wall. The posterior fascia and peritoneum were closed with running 0 Vicryl sutures. The anterior abdominal wall fascia and oblique muscles were closed with interrupted 0 Ethibond sutures. An On-Q pump was then placed over the top of this. The subcutaneous fat layer was closed with a running 3-0 Vicryl stitch. The skin was closed with skin german. Dermabond was placed over the lipoma excision site. Sterile dressings were then applied. The patient tolerated the procedure well and was transferred to the PACU in stable condition. All counts were complete and correct at the end of the case. MIGUEL ROBERSON /[id number] ESTUARDO
[2019-06-24] MEDS ORDERED: Cyclobenzaprine 10 MG Tab PO SCH (21:00)
[2019-06-25] MEDS: HYDROmorphone 2 MG/ML Syringe IVPUSH PRN ×6 (00:01→22:31)
[2019-06-25] MEDS: Lactated Ringers 1,000 ML IV SCH (03:13)
[2019-06-25 05:44] LABS: BLOOD UREA NITROGEN,BUN 14 mg/dL (7.0-18.0); CARBON DIOXIDE,CO2 30.5 mmol/L (21.0-32.0); CHLORIDE,CL 101 mmol/L (98-107); GLUCOSE RANDOM 131 mg/dL (74-106); POTASSIUM,K 4.2 mmol/L (3.5-5.1); SODIUM,NA 137 mmol/L (136-148)
[2019-06-25] MEDS ORDERED: Acetaminophen 325 MG Tab PO PRN (08:07)
--- NOTE | 2019-06-25 08:39 | PCM48HPAN ---
Post Anesthesia Note - EVALUATION WITHIN 48HRS OF ANESTHETIC Vital Signs in Normal Range: Yes Patient Participated in Evaluation: Yes (up in the chair after breakfast) Respiratory Function Stable: Yes Airway Patent: Yes Cardiovascular Function Stable: Yes Hydration Status Stable: Yes Pain Control Satisfactory: Yes (taking Dilaudid every hour) Nausea and Vomiting Control Satisfactory: Yes Mental Status Recovered: Yes Vital Signs: Last Vital Signs Temp 36.4 C 06/25/19 04:00 Pulse 65 06/25/19 04:00 Resp 21 H 06/25/19 04:00 BP 142/84 H 06/25/19 04:35 Pulse Ox 94 L 06/25/19 04:00
--- NOTE | 2019-06-25 08:55 | PCM.SURGPN ---
- General Info Date of Service: 06/25/19 Date of Surgery/Procedure: 06/24/19 POD#: 1 Functional Status: Reports: Pain Controlled, Tolerating Diet, Ambulating, Urinating, Incentive Spirometry. Denies: New Symptoms - Review of Systems General: Reports: No Symptoms HEENT: Reports: No Symptoms Pulmonary: Reports: No Symptoms Cardiovascular: Reports: No Symptoms Gastrointestinal: Reports: Abdominal Pain Genitourinary: Reports: No Symptoms Musculoskeletal: Reports: No Symptoms Skin: Reports: No Symptoms Neurological: Reports: No Symptoms - Patient Data Vitals - Most Recent: Last Vital Signs Temp 36.4 C 06/25/19 04:00 Pulse 65 06/25/19 04:00 Resp 21 H 06/25/19 04:00 BP 142/84 H 06/25/19 04:35 Pulse Ox 94 L 06/25/19 04:00 Weight - Most Recent: 115.212 kg I&O - Last 24 Hours: Intake & Output 06/24/19 06/25/19 06/25/19 22:59 06:59 14:59 Intake Total 965 2412 Output Total 1140 1795 Balance -175 617 Lab Results Last 24 Hrs: Laboratory Results - last 24 hr 06/25/19 Range/Units 05:10 Sodium 137 (136-148) mmol/L Potassium 4.2 (3.5-5.1) mmol/L Chloride 101 (98-107) mmol/L Carbon Dioxide 30.5 (21.0-32.0) mmol/L BUN 14 (7.0-18.0) mg/dL Creatinine 1.0 (0.8-1.3) mg/dL Est Cr Clr Drug Dosing 86.80 mL/min Estimated GFR (MDRD) > 60.0 ml/min Glucose 131 H (74-106) mg/dL Calcium 8.4 L (8.5-10.1) mg/dL Total Bilirubin 0.5 (0.2-1.0) mg/dL AST 51 H (15-37) IU/L ALT 116 H (14-63) IU/L Alkaline Phosphatase 62 (46-116) U/L Total Protein 6.4 (6.4-8.2) g/dL Albumin 3.3 L (3.4-5.0) g/dL Globulin 3.1 (2.6-4.0) g/dL Albumin/Globulin Ratio 1.1 (0.9-1.6) Med Orders - Current: Current Medications Acetaminophen (Tylenol) 650 mg PO Q6H PRN PRN Reason: Abdominal Pain Bisacodyl (Dulcolax) 5 mg PO DAILY [facility] Cyclobenzaprine HCl (Flexeril) 10 mg PO BID [facility] Last Admin: 06/24/19 21:35 Dose: 10 mg Diphenhydramine HCl (Benadryl) 50 mg IVPUSH Q6H PRN PRN Reason: Itching Last Admin: 06/24/19 15:39 Dose: 50 mg Hydromorphone HCl (Dilaudid) 0.5 mg IVPUSH Q1H PRN PRN Reason: Abdominal Pain Last Admin: 06/25/19 07:43 Dose: 0.5 mg Lisinopril (Prinivil) 10 mg PO QPM [facility] Last Admin: 06/24/19 18:17 Dose: 10 mg Ondansetron HCl (Zofran) 4 mg IVPUSH Q6H PRN PRN Reason: Nausea/Vomiting Last Admin: 06/24/19 19:53 Dose: 4 mg Polyethylene Glycol (Miralax) 17 gm PO DAILY [facility] Promethazine HCl (Phenergan) 25 mg IM Q6H PRN PRN Reason: Nausea/Vomiting Scopolamine (Transderm-Scop) 1.5 mg TRDERM Q72H PRN PRN Reason: Nausea/Vomiting Last Admin: 06/24/19 08:02 Dose: 1.5 mg Sodium Chloride (Saline Flush) 10 ml FLUSH ASDIRECTED PRN PRN Reason: Keep Vein Open Sodium Chloride (Saline Flush) 2.5 ml FLUSH ASDIRECTED PRN PRN Reason: Keep Vein Open Sodium Chloride (Normal Saline) 10 ml IV ASDIRECTED PRN PRN Reason: IV Use Tramadol HCl (Ultram) 100 mg PO Q6H PRN PRN Reason: Abdominal Pain Discontinued Medications Hydrocodone Bitart/Acetaminophen ([place] 325-5 Mg) 2 tab PO Q4H PRN PRN Reason: Pain (moderate 4-6) Last Admin: 06/25/19 03:11 Dose: 2 tab Bupivacaine HCl (Marcaine 0.5%) Confirm Administered Dose 30 ml .ROUTE .STK-MED ONE Stop: 06/24/19 07:33 Bupivacaine HCl (Marc[place] 0.5%) Confirm Administered Dose 120 ml .ROUTE .STK- MED ONE Stop: 06/24/19 09:35 Cefazolin Sodium (Ancef) Confirm Administered Dose 2 gm .ROUTE .STK-MED ONE Stop: 06/24/19 07:47 Cefazolin Sodium (Ancef) Confirm Administered Dose 1 gm .ROUTE .STK-MED ONE Stop: 06/24/19 09:35 Cyclobenzaprine HCl (Flexeril) 10 mg PO BID [facility] Dexamethasone (Dexamethasone) Confirm Administered Dose 20 mg .ROUTE .STK-MED ONE Stop: 06/24/19 07:30 Fentanyl (Fentanyl) 50 mcg IVPUSH ONETIME ONE Stop: 06/24/19 07:24 Last Admin: 06/24/19 14:49 Dose: Not Given Fentanyl (Sublimaze) Confirm Administered Dose 250 mcg .ROUTE .STK-MED ONE Stop: 06/24/19 07:30 Fentanyl (Sublimaze) Confirm Administered Dose 100 mcg .ROUTE .STK-MED ONE Stop: 06/24/19 07:31 Last Admin: 06/24/19 07:37 Dose: 50 mcg Fentanyl (Sublimaze) Confirm Administered Dose 250 mcg .ROUTE .STK-MED ONE Stop: 06/24/19 08:53 Fentanyl (Sublimaze) Confirm Administered Dose 250 mcg .ROUTE .STK-MED ONE Stop: 06/24/19 09:14 Hydromorphone HCl (Dilaudid) 2 mg IVPUSH ONETIME ONE Stop: 06/24/19 11:16 Last Admin: 06/24/19 11:47 Dose: 2 mg Cefazolin Sodium/Dextrose 2 gm (/ Premix) 50 mls @ 100 mls/hr IV ONETIME ONE Stop: 06/21/19 13:48 Lactated Ringer's (Ringers, Lactated) 1,000 mls @ 125 mls/hr IV ASDIRECTED [facility] Last Admin: 06/25/19 03:13 Dose: 125 mls/hr Sodium Chloride (Normal Saline) Confirm Administered Dose 20 mls @ as directed .ROUTE .STK-MED ONE Stop: 06/24/19 07:47 Acetaminophen 1,000 mg/ Premix 100 mls @ 400 mls/hr IV NOW ONE Stop: 06/24/19 11:24 Last Admin: 06/24/19 11:20 Dose: 400 mls/hr Metoprolol Tartrate 5 mg/ (Sodium Chloride) 55 mls @ 100 mls/hr IV ONETIME ONE Stop: 06/24/19 11:42 Last Admin: 06/25/19 08:02 Dose: Not Given Lidocaine (Xylocaine-Mpf 2%) Confirm Administered Dose 5 ml .ROUTE .STK-MED ONE Stop: 06/24/19 07:30 Metoprolol Tartrate (Lopressor) 5 mg IV ONETIME ONE Stop: 06/24/19 11:31 Last Admin: 06/24/19 11:32 Dose: 5 mg Midazolam HCl (Versed 1 Mg/Ml) Confirm Administered Dose 2 mg .ROUTE .STK-MED ONE Stop: 06/24/19 07:29 Octyl Cyanoacrylate (Dermabond Advance) Confirm Administered Dose 1 applic .ROUTE .STK-MED ONE Stop: 06/24/19 11:04 Ondansetron HCl (Zofran) Confirm Administered Dose 4 mg .ROUTE .STK-MED ONE Stop: 06/24/19 07:30 Ondansetron HCl (Zofran) Confirm Administered Dose 4 mg .ROUTE .STK-MED ONE Stop: 06/24/19 10:28 Phenylephrine HCl (Phenylephrine In Ns 100 Mcg/Ml) Confirm Administered Dose 1 mg .ROUTE .STK-MED ONE Stop: 06/24/19 08:46 Propofol (Diprivan 20 Ml) Confirm Administered Dose 200 mg .ROUTE .STK-MED ONE Stop: 06/24/19 07:29 Rocuronium [place] (Zemuron) Confirm Administered Dose 100 mg .ROUTE .STK-MED ONE Stop: 06/24/19 07:30 Sugammadex Sodium (Bridion) Confirm Administered Dose 200 mg .ROUTE .STK-MED ONE Stop: 06/24/19 07:22 - Exam Wound/Incisions: Healing Well, Drainage. No: Erythema Quality Assessment: Supplemental Oxygen General: Alert, Oriented HEENT: Pupils Equal, Pupils Reactive Lungs: Normal Respiratory Effort Cardiovascular: Regular Rate GI/Abdominal Exam: Soft, Non-Tender, No Distention, Distended (mild). No: Guarding, Rigid, Rebound Extremities: Normal Inspection Skin: Warm, Dry, Intact Neurological: No New Focal Deficit Psy/Mental Status: Alert, Normal Affect, Normal Mood Sepsis Event Note - Evaluation Sepsis Screening Result: No Definite Risk - Focused Exam Vital Signs: Vital Signs Temp Pulse Resp BP Pulse Ox 06/25/19 04:35 142/84 H 06/25/19 04:00 36.4 C 65 21 H 144/95 H 94 L 06/25/19 00:00 36.6 C 71 21 H 132/83 90 L Date Exam was Performed: 06/25/19 Time Exam was Performed: 08:48 - Problem List & Annotations (1) Intra-abdominal adhesions SNOMED Code(s): 649684641 Code(s): K66.0 - PERITONEAL ADHESIONS (POSTPROCEDURAL) (POSTINFECTION) Status: Acute Current Visit: Yes (2) Chronic cholecystitis with calculus SNOMED Code(s): 49601713 Code(s): K80.10 - CALCULUS OF GALLBLADDER W CHRONIC CHOLECYST W/O OBSTRUCTION Status: Acute Current Visit: Yes (3) Lipoma of abdominal wall SNOMED Code(s): 084497211 Code(s): D17.1 - BENIGN LIPOMATOUS NEOPLASM OF SKIN, SUBCU OF TRUNK Status : Acute Current Visit: Yes - Problem List Review Problem List Initiated/Reviewed/Updated: Yes - My Orders Last 24 Hours: Active Orders 24 hr Category Date Time Status Patient Status [ADT] Routine ADT 06/24/19 13:03 Active Ambulate [RC] ASDIRECTED Care 06/24/19 10:55 Active Oxygen Therapy [RC] PRN Care 06/24/19 10:55 Active Pulse Oximetry [RC] CONTINUOUS Care 06/24/19 10:55 Active RT Incentive Spirometry [RC] ASDIRECTED Care 06/24/19 10:55 Active Remove Negrete Catheter [Urinary Catheter Removal] [RC] Care 06/25/19 07:46 Active Per Unit Routine Vital Signs [RC] PER UNIT ROUTINE Care 06/24/19 10:55 Active Regular Diet [DIET] Diet 06/25/19 Lunch Active Acetaminophen [Tylenol] Med 06/25/19 08:07 Active 650 mg PO Q6H PRN Cyclobenzaprine [Flexeril] Med 06/24/19 15:30 Active 10 mg PO BID HYDROmorphone [Dilaudid] Med 06/24/19 10:55 Active 0.5 mg IVPUSH Q1H PRN Ondansetron [Zofran] Med 06/24/19 18:25 Active 4 mg IVPUSH Q6H PRN Promethazine [Phenergan] Med 06/24/19 18:25 Active 25 mg IM Q6H PRN bisacodyL [Dulcolax] Med 06/25/19 09:00 Active 5 mg PO DAILY diphenhydrAMINE [Benadryl] Med 06/24/19 15:33 Active 50 mg IVPUSH Q6H PRN lisinopriL [Prinivil] Med 06/24/19 18:00 Active 10 mg PO QPM polyethylene glycoL 3350 [MiraLAX] Med 06/25/19 09:00 Active 17 gm PO DAILY traMADol [Ultram] Med 06/25/19 08:07 Active 100 mg PO Q6H PRN Pulse Oximetry Continuous Monitoring [OM.PC] Routine Oth 06/24/19 12:36 Ordered Medication Orders Acetaminophen (Tylenol) 650 mg PO Q6H PRN PRN Reason: Abdominal Pain Bisacodyl (Dulcolax) 5 mg PO DAILY [facility] Cyclobenzaprine HCl (Flexeril) 10 mg PO BID [facility] Last Admin: 06/24/19 21:35 Dose: 10 mg Admin: 06/24/19 15:46 Dose: 10 mg Diphenhydramine HCl (Benadryl) 50 mg IVPUSH Q6H PRN PRN Reason: Itching Last Admin: 06/24/19 15:39 Dose: 50 mg Hydromorphone HCl (Dilaudid) 0.5 mg IVPUSH Q1H PRN PRN Reason: Abdominal Pain Last Admin: 06/25/19 07:43 Dose: 0.5 mg Admin: 06/25/19 04:33 Dose: 0.5 mg Admin: 06/25/19 00:01 Dose: 0.5 mg Admin: 06/24/19 21:49 Dose: 0.5 mg Admin: 06/24/19 19:40 Dose: 0.5 mg Admin: 06/24/19 18:14 Dose: 0.5 mg Admin: 06/24/19 14:58 Dose: 0.5 mg Admin: 06/24/19 13:25 Dose: 0.5 mg Lisinopril (Prinivil) 10 mg PO QPM [facility] Last Admin: 06/24/19 18:17 Dose: 10 mg Ondansetron HCl (Zofran) 4 mg IVPUSH Q6H PRN PRN Reason: Nausea/Vomiting Last Admin: 06/24/19 19:53 Dose: 4 mg Polyethylene Glycol (Miralax) 17 gm PO DAILY [facility] Promethazine HCl (Phenergan) 25 mg IM Q6H PRN PRN Reason: Nausea/Vomiting Scopolamine (Transderm-Scop) 1.5 mg TRDERM Q72H PRN PRN Reason: Nausea/Vomiting Last Admin: 06/24/19 08:02 Dose: 1.5 mg Sodium Chloride (Saline Flush) 10 ml FLUSH ASDIRECTED PRN PRN Reason: Keep Vein Open Sodium Chloride (Saline Flush) 2.5 ml FLUSH ASDIRECTED PRN PRN Reason: Keep Vein Open Sodium Chloride (Normal Saline) 10 ml IV ASDIRECTED PRN PRN Reason: IV Use Tramadol HCl (Ultram) 100 mg PO Q6H PRN PRN Reason: Abdominal Pain - Plan Plan (Free Text/Narrative):: Patient had some nausea last night which responded to medications. He had some itching with Dilaudid but after dose of Benadryl this went away. He complains of some confusion last night after surgery. I reassured him that this is common immediately after surgery. This morning he feels better. He would like to avoid [place] as a cyst given him mood liability in the past. Negrete catheter was removed. Patient is not yet passing flatus. There was some leaking of fluid from around the On-Q catheter is likely his Marcaine. Pain: Scheduled Flexeril, IV Dilaudid as needed for severe pain, will switch to tramadol 100 mg every 6 hours as needed for pain as well as prn Tylenol. CV: Blood pressure stable, heart rate normal. Restarted home lisinopril. Pulmonary: Sats within normal limits. Encourage incentive from her use and out of bed activity. GI: Advance to regular diet. I explained to the patient that he should eat small frequent meals and it is common to not have a large appetite after such a big surgery. DC IV fluids. Liver function tests this morning showed an elevated AST and ALT which is common after this surgery. Bilirubin normal. Renal: BUN/creatinine stable. Urine output adequate. Heme: Drain output serous and bloody. Continue to monitor output today. No evidence of severe hemorrhage. ID: No need for antibiotics. Prophylaxis: SCDs, No need for GI prophylaxis.
[2019-06-25] MEDS: Cyclobenzaprine 10 MG Tab PO SCH ×2 (09:00→20:41)
[2019-06-25] MEDS: Bisacodyl 5 MG Tab PO SCH (09:01)
[2019-06-25] MEDS: Polyethylene Glycol 3350 Powder 17 GM Packet PO SCH (09:01)
[2019-06-25] MEDS: traMADol 50 MG Tab PO PRN ×2 (09:17→19:22)
[2019-06-25] MEDS: diphenhydrAMINE 50 MG/ML SDV IVPUSH PRN (14:16)
[2019-06-25] MEDS: Lisinopril 10 MG Tab PO SCH (18:43)
[2019-06-26] MEDS: Polyethylene Glycol 3350 Powder 17 GM Packet PO SCH (08:09)
[2019-06-26] MEDS: Cyclobenzaprine 10 MG Tab PO SCH ×2 (08:09→20:56)
[2019-06-26] MEDS: Bisacodyl 5 MG Tab PO SCH (08:09)
[2019-06-26] MEDS ORDERED: Magnesium Citrate Solution 296 ML Bottle PO PRN (08:46)
--- NOTE | 2019-06-26 08:47 | PCM.SURGPN ---
- General Info Date of Service: 06/26/19 Date of Surgery/Procedure: 07/01/19 POD#: 2 Functional Status: Reports: Other (IV dilaudid helping with pain control. Tramadol is not. Still having muscle spasms with getting in and out of bed. Ambulated yesterday. Passing flatus but feels distended. ) - Review of Systems General: Reports: No Symptoms HEENT: Reports: No Symptoms Pulmonary: Reports: No Symptoms Cardiovascular: Reports: No Symptoms Gastrointestinal: Reports: Abdominal Pain, Flatus, Other (Bloated) Musculoskeletal: Reports: No Symptoms - Patient Data Vitals - Most Recent: Last Vital Signs Temp 36.9 C 06/26/19 07:17 Pulse 67 06/26/19 07:17 Resp 16 06/26/19 07:17 BP 143/81 H 06/26/19 07:17 Pulse Ox 94 L 06/26/19 07:17 Weight - Most Recent: 115.212 kg I&O - Last 24 Hours: Intake & Output 06/25/19 06/26/19 06/26/19 22:59 06:59 14:59 Intake Total 1200 950 Output Total 890 53 Balance 310 897 Med Orders - Current: Current Medications Acetaminophen (Tylenol) 650 mg PO Q6H PRN PRN Reason: Abdominal Pain Bisacodyl (Dulcolax) 5 mg PO DAILY [facility] Last Admin: 06/26/19 08:09 Dose: 5 mg Cyclobenzaprine HCl (Flexeril) 10 mg PO BID [facility] Last Admin: 06/26/19 08:09 Dose: 10 mg Diphenhydramine HCl (Benadryl) 50 mg IVPUSH Q6H PRN PRN Reason: Itching Last Admin: 06/25/19 14:16 Dose: 50 mg Hydromorphone HCl (Dilaudid) 4 mg PO Q4H PRN PRN Reason: Pain Lisinopril (Prinivil) 10 mg PO QPM [facility] Last Admin: 06/25/19 18:43 Dose: 10 mg Ondansetron HCl (Zofran) 4 mg IVPUSH Q6H PRN PRN Reason: Nausea/Vomiting Last Admin: 06/24/19 19:53 Dose: 4 mg Polyethylene Glycol (Miralax) 17 gm PO DAILY [facility] Last Admin: 06/26/19 08:09 Dose: 17 gm Promethazine HCl (Phenergan) 25 mg IM Q6H PRN PRN Reason: Nausea/Vomiting Scopolamine (Transderm-Scop) 1.5 mg TRDERM Q72H PRN PRN Reason: Nausea/Vomiting Last Admin: 06/24/19 08:02 Dose: 1.5 mg Sodium Chloride (Saline Flush) 10 ml FLUSH ASDIRECTED PRN PRN Reason: Keep Vein Open Sodium Chloride (Saline Flush) 2.5 ml FLUSH ASDIRECTED PRN PRN Reason: Keep Vein Open Sodium Chloride (Normal Saline) 10 ml IV ASDIRECTED PRN PRN Reason: IV Use Discontinued Medications Hydrocodone Bitart/Acetaminophen ([place] 325-5 Mg) 2 tab PO Q4H PRN PRN Reason: Pain (moderate 4-6) Last Admin: 06/25/19 03:11 Dose: 2 tab Bupivacaine HCl ([place] 0.5%) Confirm Administered Dose 30 ml .ROUTE .STK-MED ONE Stop: 06/24/19 07:33 Bupivacaine HCl ([place] 0.5%) Confirm Administered Dose 120 ml .ROUTE .STK- MED ONE Stop: 06/24/19 09:35 Cefazolin Sodium (Ancef) Confirm Administered Dose 2 gm .ROUTE .STK-MED ONE Stop: 06/24/19 07:47 Cefazolin Sodium (Ancef) Confirm Administered Dose 1 gm .ROUTE .STK-MED ONE Stop: 06/24/19 09:35 Cyclobenzaprine HCl (Flexeril) 10 mg PO BID [facility] Dexamethasone (Dexamethasone) Confirm Administered Dose 20 mg .ROUTE .STK-MED ONE Stop: 06/24/19 07:30 Fentanyl (Fentanyl) 50 mcg IVPUSH ONETIME ONE Stop: 06/24/19 07:24 Last Admin: 06/24/19 14:49 Dose: Not Given Fentanyl (Sublimaze) Confirm Administered Dose 250 mcg .ROUTE .STK-MED ONE Stop: 06/24/19 07:30 Fentanyl (Sublimaze) Confirm Administered Dose 100 mcg .ROUTE .STK-MED ONE Stop: 06/24/19 07:31 Last Admin: 06/24/19 07:37 Dose: 50 mcg Fentanyl (Sublimaze) Confirm Administered Dose 250 mcg .ROUTE .STK-MED ONE Stop: 06/24/19 08:53 Fentanyl (Sublimaze) Confirm Administered Dose 250 mcg .ROUTE .STK-MED ONE Stop: 06/24/19 09:14 Hydromorphone HCl (Dilaudid) 0.5 mg IVPUSH Q1H PRN PRN Reason: Abdominal Pain Last Admin: 06/25/19 22:31 Dose: 0.5 mg Hydromorphone HCl (Dilaudid) 2 mg IVPUSH ONETIME ONE Stop: 06/24/19 11:16 Last Admin: 06/24/19 11:47 Dose: 2 mg Cefazolin Sodium/Dextrose 2 gm (/ Premix) 50 mls @ 100 mls/hr IV ONETIME ONE Stop: 06/21/19 13:48 Lactated Ringer's (Ringers, Lactated) 1,000 mls @ 125 mls/hr IV ASDIRECTED [facility] Last Admin: 06/25/19 03:13 Dose: 125 mls/hr Sodium Chloride (Normal Saline) Confirm Administered Dose 20 mls @ as directed .ROUTE .STK-MED ONE Stop: 06/24/19 07:47 Acetaminophen 1,000 mg/ Premix 100 mls @ 400 mls/hr IV NOW ONE Stop: 06/24/19 11:24 Last Admin: 06/24/19 11:20 Dose: 400 mls/hr Metoprolol Tartrate 5 mg/ (Sodium Chloride) 55 mls @ 100 mls/hr IV ONETIME ONE Stop: 06/24/19 11:42 Last Admin: 06/25/19 08:02 Dose: Not Given Lidocaine (Xylocaine-Mpf 2%) Confirm Administered Dose 5 ml .ROUTE .STK-MED ONE Stop: 06/24/19 07:30 Metoprolol Tartrate (Lopressor) 5 mg IV ONETIME ONE Stop: 06/24/19 11:31 Last Admin: 06/24/19 11:32 Dose: 5 mg Midazolam HCl (Versed 1 Mg/Ml) Confirm Administered Dose 2 mg .ROUTE .STK-MED ONE Stop: 06/24/19 07:29 Octyl Cyanoacrylate (Dermabond Advance) Confirm Administered Dose 1 applic .ROUTE .STK-MED ONE Stop: 06/24/19 11:04 Ondansetron HCl (Zofran) Confirm Administered Dose 4 mg .ROUTE .STK-MED ONE Stop: 06/24/19 07:30 Ondansetron HCl (Zofran) Confirm Administered Dose 4 mg .ROUTE .STK-MED ONE Stop: 06/24/19 10:28 Phenylephrine HCl (Phenylephrine In Ns 100 Mcg/Ml) Confirm Administered Dose 1 mg .ROUTE .STK-MED ONE Stop: 06/24/19 08:46 Propofol (Diprivan 20 Ml) Confirm Administered Dose 200 mg .ROUTE .STK-MED ONE Stop: 06/24/19 07:29 Rocuronium [place] (Zemuron) Confirm Administered Dose 100 mg .ROUTE .STK-MED ONE Stop: 06/24/19 07:30 Sugammadex Sodium (Bridion) Confirm Administered Dose 200 mg .ROUTE .STK-MED ONE Stop: 06/24/19 07:22 Tramadol HCl (Ultram) 100 mg PO Q6H PRN PRN Reason: Abdominal Pain Last Admin: 06/25/19 19:22 Dose: 100 mg - Exam Wound/Incisions: Other (Dressings removed today as well as drainage. Incisions appear to be healing well with no signs of breakdown or infection. ) Quality Assessment: Supplemental Oxygen General: Alert, Oriented HEENT: Pupils Equal, Pupils Reactive Neck: Supple Lungs: Normal Respiratory Effort Cardiovascular: Regular Rate GI/Abdominal Exam: Soft, Non-Tender, No Mass, Distended Extremities: Normal Inspection Skin: Warm, Dry, Intact Sepsis Event Note - Evaluation Sepsis Screening Result: No Definite Risk - Focused Exam Vital Signs: Vital Signs Temp Pulse Resp BP Pulse Ox 06/26/19 07:17 36.9 C 67 16 143/81 H 94 L 06/26/19 04:00 36.1 C 67 15 138/82 92 L 06/26/19 00:10 36.3 C 75 19 141/83 H 90 L Date Exam was Performed: 06/26/19 Time Exam was Performed: 08:41 - Problem List & Annotations (1) Intra-abdominal adhesions SNOMED Code(s): 729723264 Code(s): K66.0 - PERITONEAL ADHESIONS (POSTPROCEDURAL) (POSTINFECTION) Status: Acute Current Visit: Yes (2) Chronic cholecystitis with calculus SNOMED Code(s): 83360834 Code(s): K80.10 - CALCULUS OF GALLBLADDER W CHRONIC CHOLECYST W/O OBSTRUCTION Status: Acute Current Visit: Yes (3) Lipoma of abdominal wall SNOMED Code(s): 134926927 Code(s): D17.1 - BENIGN LIPOMATOUS NEOPLASM OF SKIN, SUBCU OF TRUNK Status : Acute Current Visit: Yes - Problem List Review Problem List Initiated/Reviewed/Updated: Yes - My Orders Last 24 Hours: Active Orders 24 hr Category Date Time Status Regular Diet [DIET] Diet 06/25/19 Lunch Active Acetaminophen [Tylenol] Med 06/25/19 08:07 Active 650 mg PO Q6H PRN HYDROmorphone [Dilaudid] Med 06/26/19 08:06 Active 4 mg PO Q4H PRN bisacodyL [Dulcolax] Med 06/25/19 09:00 Active 5 mg PO DAILY polyethylene glycoL 3350 [MiraLAX] Med 06/25/19 09:00 Active 17 gm PO DAILY Medication Orders Acetaminophen (Tylenol) 650 mg PO Q6H PRN PRN Reason: Abdominal Pain Bisacodyl (Dulcolax) 5 mg PO DAILY [facility] Last Admin: 06/26/19 08:09 Dose: 5 mg Admin: 06/25/19 09:01 Dose: 5 mg Cyclobenzaprine HCl (Flexeril) 10 mg PO BID [facility] Last Admin: 06/26/19 08:09 Dose: 10 mg Admin: 06/25/19 20:41 Dose: 10 mg Admin: 06/25/19 09:00 Dose: 10 mg Admin: 06/24/19 21:35 Dose: 10 mg Admin: 06/24/19 15:46 Dose: 10 mg Diphenhydramine HCl (Benadryl) 50 mg IVPUSH Q6H PRN PRN Reason: Itching Last Admin: 06/25/19 14:16 Dose: 50 mg Admin: 06/24/19 15:39 Dose: 50 mg Hydromorphone HCl (Dilaudid) 4 mg PO Q4H PRN PRN Reason: Pain Lisinopril (Prinivil) 10 mg PO QPM [facility] Last Admin: 06/25/19 18:43 Dose: 10 mg Admin: 06/24/19 18:17 Dose: 10 mg Ondansetron HCl (Zofran) 4 mg IVPUSH Q6H PRN PRN Reason: Nausea/Vomiting Last Admin: 06/24/19 19:53 Dose: 4 mg Polyethylene Glycol (Miralax) 17 gm PO DAILY [facility] Last Admin: 06/26/19 08:09 Dose: 17 gm Admin: 06/25/19 09:01 Dose: 17 gm Promethazine HCl (Phenergan) 25 mg IM Q6H PRN PRN Reason: Nausea/Vomiting Scopolamine (Transderm-Scop) 1.5 mg TRDERM Q72H PRN PRN Reason: Nausea/Vomiting Last Admin: 06/24/19 08:02 Dose: 1.5 mg Sodium Chloride (Saline Flush) 10 ml FLUSH ASDIRECTED PRN PRN Reason: Keep Vein Open Sodium Chloride (Saline Flush) 2.5 ml FLUSH ASDIRECTED PRN PRN Reason: Keep Vein Open Sodium Chloride (Normal Saline) 10 ml IV ASDIRECTED PRN PRN Reason: IV Use - Plan Plan (Free Text/Narrative):: Pain: Po Dilaudid and Flexeril. CV: Stable. On home HTN meds. Pulm: Continue with IS use and ambulation. GI: regular diet. Tolerating. Miralax and dulcolax/senna. PRN mag citrate for severe constipation. Renal: UOP adequate. Drain removed. Drain output was serosanguinous and <100ml over the past 24 hr. Heme/ID: Stable no issues Px: NO need for GI px, lovenox 40mg
[2019-06-26] MEDS: HYDROmorphone 2 MG Tab PO PRN ×3 (09:20→20:56)
[2019-06-26] MEDS: Lisinopril 10 MG Tab PO SCH (17:19)
[2019-06-26] MEDS: diphenhydrAMINE 50 MG/ML SDV IVPUSH PRN (17:52)
[2019-06-26] MEDS: diphenhydrAMINE 50 MG Cap PO PRN (19:31)
[2019-06-27] MEDS: HYDROmorphone 2 MG Tab PO PRN (07:34)
[2019-06-27 08:16] VITALS: BP 136/82; PULSE 67
[2019-06-27] MEDS: Polyethylene Glycol 3350 Powder 17 GM Packet PO SCH (08:25)
[2019-06-27] MEDS: Cyclobenzaprine 10 MG Tab PO SCH (08:25)
[2019-06-27] MEDS: Bisacodyl 5 MG Tab PO SCH (08:25)
[2019-06-27] MEDS: diphenhydrAMINE 50 MG Cap PO PRN (10:03)
[2019-06-27] MEDS ORDERED: Hydrocortisone 2.5% Crm 30 GM Tube TOP PRN ×2 (10:26→11:12)
--- NOTE | 2019-06-27 10:31 | PCM.DCSUM1 ---
Discharge Summary - Hospital Course Free Text/Narrative:: Patient is a 59 year old male who underwent an elective cholecystectomy for symptomatic cholelithiasis. He was found to have multiple liver capsule adhesions as well as adhesions around his gallbladder that made it impossible to do his procedure laparoscopically. He was converted to open. He tolerated the procedure with no acute complications. He was monitored closely on the floor. BP was stable. Drain output was appropriate and tapered off over 24 hrs. His pain was well controlled on IV dilaudid and the patient refused other po pain medications due to reactions in the past. Tramadol was tried with no pain relief. Po dilaudid controlled his pain very well. He developed a confluent rash over his abdomen. He felt this was due to the soap he used during his first shower. The patient has had reactions to prep and tapes in the past. His rash responded well to po and IV benadryl. He was given cortisone cream to apply as well. His diet was advanced without difficulty. His drains and dressings were removed and he is cleared for discharge. - Discharge Data Discharge Date: 06/27/19 Discharge Disposition: Home, Self-Care 01 Condition: Good - Referral to Home Health Primary Care Physician: Malini Johnson MD - Discharge Diagnosis/Problem(s) (1) Intra-abdominal adhesions SNOMED Code(s): 656948067 ICD Code: K66.0 - PERITONEAL ADHESIONS (POSTPROCEDURAL) (POSTINFECTION) Status: Acute Current Visit: Yes (2) Chronic cholecystitis with calculus SNOMED Code(s): 23179121 ICD Code: K80.10 - CALCULUS OF GALLBLADDER W CHRONIC CHOLECYST W/O OBSTRUCTION Status: Acute Current Visit: Yes (3) Lipoma of abdominal wall SNOMED Code(s): 662882775 ICD Code: D17.1 - BENIGN LIPOMATOUS NEOPLASM OF SKIN, SUBCU OF TRUNK Status : Acute Current Visit: Yes - Patient Summary/Data Operative Procedure(s) Performed: Excision left abdominal wall lipoma, laparoscopic converted to open cholecystectomy , lysis of intra-abdominal adhesions - Patient Instructions Diet: Regular Diet as Tolerated Activity: No Lifting Over 20 Pounds (for six weeks ), Rest and Relax Today Driving: Do Not Drive (for one week after surgery ) Showering/Bathing: May Shower, No Tub Bathing/Swimming (for 1 more week ) Wound/Incision Care: Keep Operative Site/Wound Site Clean and Dry Wound/Incision, Other: Keep bandage over the drain site on your right side until is scabs over. Notify Provider of: Fever, Increased Pain, Swelling and Redness, Drainage, Nausea and/or Vomiting - Discharge Plan *PRESCRIPTION DRUG MONITORING PROGRAM REVIEWED*: Yes *COPY OF PRESCRIPTION DRUG MONITORING REPORT IN PATIENT DEBBIE: Yes Prescriptions/Med Rec: bisacodyL [Dulcolax] 5 mg PO DAILY #7 tablet Cyclobenzaprine [Flexeril] 10 mg PO BID #14 tablet Hydrocortisone [Hydrocortisone 2.5% Crm] 1 gm TOP Q1H PRN #1 tube PRN Reason: Rash polyethylene glycoL 3350 [MiraLAX] 17 gm PO DAILY #7 packet Sennosides/Docusate Sodium [Senna Plus 8.6-50 mg Softgel] 1 each PO DAILY #7 capsule Home Medications: Home Meds traZODone 50 mg PO BEDTIME 05/03/14 [History] Celecoxib 200 mg PO DAILY PRN 06/18/19 [History] Lisinopril [Zestril] 10 mg PO BEDTIME 06/18/19 [History] Cyclobenzaprine [Flexeril] 10 mg PO BID #14 tablet 06/27/19 [Rx] Hydrocortisone [Hydrocortisone 2.5% Crm] 1 gm TOP Q1H PRN #1 tube 06/27/19 [Rx] Sennosides/Docusate Sodium [Senna Plus 8.6-50 mg Softgel] 1 each PO DAILY #7 capsule 06/27/19 [Rx] bisacodyL [Dulcolax] 5 mg PO DAILY #7 tablet 06/27/19 [Rx] polyethylene glycoL 3350 [MiraLAX] 17 gm PO DAILY #7 packet 06/27/19 [Rx] Patient Handouts: Open Cholecystectomy, Care After, Acetaminophen; Oxycodone tablets Referrals: Jordyn Meza MD [Physician] - 07/09/19 1:00 pm - Discharge Summary/Plan Comment DC Time >30 min.: No - General Info Date of Service: 06/27/19 Functional Status: Reports: Pain Controlled, Tolerating Diet, Ambulating, Urinating - Review of Systems General: Reports: No Symptoms HEENT: Reports: No Symptoms Pulmonary: Reports: No Symptoms Cardiovascular: Reports: No Symptoms Gastrointestinal: Reports: No Symptoms Genitourinary: Reports: No Symptoms Musculoskeletal: Reports: No Symptoms Skin: Reports: Pruritis, Rash - Patient Data Vitals - Most Recent: Last Vital Signs Temp 36.1 C 06/27/19 07:30 Pulse 67 06/27/19 07:30 Resp 20 06/27/19 07:30 BP 136/82 06/27/19 07:30 Pulse Ox 95 06/27/19 07:30 Weight - Most Recent: 115.212 kg I&O - Last 24 hours: Intake & Output 06/26/19 06/27/19 06/27/19 22:59 06:59 14:59 Intake Total 1900 800 Output Total 2325 Balance 1900 -1525 Med Orders - Current: Current Medications Acetaminophen (Tylenol) 650 mg PO Q6H PRN PRN Reason: Abdominal Pain Bisacodyl (Dulcolax) 5 mg PO DAILY [facility] Last Admin: 06/27/19 08:25 Dose: 5 mg Cyclobenzaprine HCl (Flexeril) 10 mg PO BID [facility] Last Admin: 06/27/19 08:25 Dose: 10 mg Diphenhydramine HCl (Benadryl) 50 mg IVPUSH Q6H PRN PRN Reason: Itching Last Admin: 06/25/19 14:16 Dose: 50 mg Diphenhydramine HCl (Benadryl) 50 mg PO Q6H PRN PRN Reason: Itching Last Admin: 06/27/19 10:03 Dose: 50 mg Hydromorphone HCl (Dilaudid) 4 mg PO Q4H PRN PRN Reason: Pain Last Admin: 06/27/19 07:34 Dose: 4 mg Lisinopril (Prinivil) 10 mg PO QPM [facility] Last Admin: 06/26/19 17:19 Dose: 10 mg Magnesium Citrate (Citrate Of Magnesia) 296 ml PO ONETIME PRN PRN Reason: Constipation Last Admin: 06/27/19 09:37 Dose: 296 ml Ondansetron HCl (Zofran) 4 mg IVPUSH Q6H PRN PRN Reason: Nausea/Vomiting Last Admin: 06/24/19 19:53 Dose: 4 mg Polyethylene Glycol (Miralax) 17 gm PO DAILY [facility] Last Admin: 06/27/19 08:25 Dose: 17 gm Promethazine HCl (Phenergan) 25 mg IM Q6H PRN PRN Reason: Nausea/Vomiting Scopolamine (Transderm-Scop) 1.5 mg TRDERM Q72H PRN PRN Reason: Nausea/Vomiting Last Admin: 06/24/19 08:02 Dose: 1.5 mg Senna/Docusate Sodium (Senna Plus) 1 tab PO ASDIRECTED RANDA Sodium Chloride (Saline Flush) 10 ml FLUSH ASDIRECTED PRN PRN Reason: Keep Vein Open Sodium Chloride (Saline Flush) 2.5 ml FLUSH ASDIRECTED PRN PRN Reason: Keep Vein Open Sodium Chloride (Normal Saline) 10 ml IV ASDIRECTED PRN PRN Reason: IV Use Discontinued Medications Hydrocodone Bitart/Acetaminophen ([place] 325-5 Mg) 2 tab PO Q4H PRN PRN Reason: Pain (moderate 4-6) Last Admin: 06/25/19 03:11 Dose: 2 tab Bupivacaine HCl (Marcaine 0.5%) Confirm Administered Dose 30 ml .ROUTE .STK-MED ONE Stop: 06/24/19 07:33 Bupivacaine HCl (Marcaine 0.5%) Confirm Administered Dose 120 ml .ROUTE .STK- MED ONE Stop: 06/24/19 09:35 Cefazolin Sodium (Ancef) Confirm Administered Dose 2 gm .ROUTE .STK-MED ONE Stop: 06/24/19 07:47 Cefazolin Sodium (Ancef) Confirm Administered Dose 1 gm .ROUTE .STK-MED ONE Stop: 06/24/19 09:35 Cyclobenzaprine HCl (Flexeril) 10 mg PO BID [facility] Dexamethasone (Dexamethasone) Confirm Administered Dose 20 mg .ROUTE .STK-MED ONE Stop: 06/24/19 07:30 Fentanyl (Fentanyl) 50 mcg IVPUSH ONETIME ONE Stop: 06/24/19 07:24 Last Admin: 06/24/19 14:49 Dose: Not Given Fentanyl (Sublimaze) Confirm Administered Dose 250 mcg .ROUTE .STK-MED ONE Stop: 06/24/19 07:30 Fentanyl (Sublimaze) Confirm Administered Dose 100 mcg .ROUTE .STK-MED ONE Stop: 06/24/19 07:31 Last Admin: 06/24/19 07:37 Dose: 50 mcg Fentanyl (Sublimaze) Confirm Administered Dose 250 mcg .ROUTE .STK-MED ONE Stop: 06/24/19 08:53 Fentanyl (Sublimaze) Confirm Administered Dose 250 mcg .ROUTE .STK-MED ONE Stop: 06/24/19 09:14 Hydromorphone HCl (Dilaudid) 0.5 mg IVPUSH Q1H PRN PRN Reason: Abdominal Pain Last Admin: 06/25/19 22:31 Dose: 0.5 mg Hydromorphone HCl (Dilaudid) 2 mg IVPUSH ONETIME ONE Stop: 06/24/19 11:16 Last Admin: 06/24/19 11:47 Dose: 2 mg Cefazolin Sodium/Dextrose 2 gm (/ Premix) 50 mls @ 100 mls/hr IV ONETIME ONE Stop: 06/21/19 13:48 Lactated Ringer's (Ringers, Lactated) 1,000 mls @ 125 mls/hr IV ASDIRECTED [facility] Last Admin: 06/25/19 03:13 Dose: 125 mls/hr Sodium Chloride (Normal Saline) Confirm Administered Dose 20 mls @ as directed .ROUTE .STK-MED ONE Stop: 06/24/19 07:47 Acetaminophen 1,000 mg/ Premix 100 mls @ 400 mls/hr IV NOW ONE Stop: 06/24/19 11:24 Last Admin: 06/24/19 11:20 Dose: 400 mls/hr Metoprolol Tartrate 5 mg/ (Sodium Chloride) 55 mls @ 100 mls/hr IV ONETIME ONE Stop: 06/24/19 11:42 Last Admin: 06/25/19 08:02 Dose: Not Given Lidocaine (Xylocaine-Mpf 2%) Confirm Administered Dose 5 ml .ROUTE .STK-MED ONE Stop: 06/24/19 07:30 Metoprolol Tartrate (Lopressor) 5 mg IV ONETIME ONE Stop: 06/24/19 11:31 Last Admin: 06/24/19 11:32 Dose: 5 mg Midazolam HCl (Versed 1 Mg/Ml) Confirm Administered Dose 2 mg .ROUTE .STK-MED ONE Stop: 06/24/19 07:29 Octyl Cyanoacrylate (Dermabond Advance) Confirm Administered Dose 1 applic .ROUTE .STK-MED ONE Stop: 06/24/19 11:04 Ondansetron HCl (Zofran) Confirm Administered Dose 4 mg .ROUTE .STK-MED ONE Stop: 06/24/19 07:30 Ondansetron HCl (Zofran) Confirm Administered Dose 4 mg .ROUTE .STK-MED ONE Stop: 06/24/19 10:28 Phenylephrine HCl (Phenylephrine In Ns 100 Mcg/Ml) Confirm Administered Dose 1 mg .ROUTE .STK-MED ONE Stop: 06/24/19 08:46 Propofol (Diprivan 20 Ml) Confirm Administered Dose 200 mg .ROUTE .STK-MED ONE Stop: 06/24/19 07:29 Rocuronium Climax (Zemuron) Confirm Administered Dose 100 mg .ROUTE .STK-MED ONE Stop: 06/24/19 07:30 Sugammadex Sodium (Bridion) Confirm Administered Dose 200 mg .ROUTE .STK-MED ONE Stop: 06/24/19 07:22 Tramadol HCl (Ultram) 100 mg PO Q6H PRN PRN Reason: Abdominal Pain Last Admin: 06/25/19 19:22 Dose: 100 mg - Exam General: Reports: Alert, Oriented HEENT: Reports: Pupils Equal, Pupils Reactive Lungs: Reports: Normal Respiratory Effort Cardiovascular: Reports: Regular Rate GI/Abdominal Exam: Soft, Non-Tender, No Distention, No Mass Back Exam: Reports: Normal Inspection Skin: Reports: Rash (over stomach where glue from bandages were and surrounding those areas ) Wound/Incisions: Reports: Healing Well
== END 2019-06-27 14:36 | disposition home or self-care (01) | DRG 416 ==
LOC: MW.SDS 06:32 → MW.MS 10:55 → OBSVTOIN 13:03
PROVIDERS: ADMIT Surgery; ATTEND Surgery
PROC: 0FT40ZZ Resection of Gallbladder, Open Approach (ICD-10-PCS; principal; 2019-06-24)
PROC: 0HB7XZZ Excision of Abdomen Skin, External Approach (ICD-10-PCS; 2019-06-24)
DX: K80.10 Calculus of gallbladder with chronic cholecystitis without obstruction (principal); E78.5 Hyperlipidemia, unspecified; F41.9 Anxiety disorder, unspecified; I10 Essential (primary) hypertension; D17.1 Benign lipomatous neoplasm of skin and subcutaneous tissue of trunk; G47.00 Insomnia, unspecified; G43.909 Migraine, unspecified, not intractable, without status migrainosus; K66.0 Peritoneal adhesions (postprocedural) (postinfection); E66.9 Obesity, unspecified; M85.80 Other specified disorders of bone density and structure, unspecified site; R41.0 Disorientation, unspecified; R11.0 Nausea; Z88.8 Allergy status to other drugs, medicaments and biological substances; Z79.899 Other long term (current) drug therapy; Z90.89 Acquired absence of other organs; Z98.890 Other specified postprocedural states; Z88.5 Allergy status to narcotic agent; Z68.35 Body mass index [BMI] 35.0-35.9, adult; Z53.31 Laparoscopic surgical procedure converted to open procedure
CPT/HCPCS: 00790; 36415; 51702; 80053; 88304; A9270-GY; J0131; J0690; J1100; J1170; J1200; J2001; J2250; J2370; J2405; J2704; J3010; J3490; J7120

== ENCOUNTER 2019-06-30 10:44 | Emergency (ER) | payer OTHER ==
[2019-06-30] MEDS ORDERED: Sodium Chloride 0.9% 2.5 ML Syringe FLUSH PRN (10:50)
[2019-06-30] MEDS ORDERED: Sodium Chloride 0.9% 10 ML Syringe FLUSH PRN (10:50)
--- NOTE | 2019-06-30 11:03 | EDM.PDOC ---
ED HPI GENERAL MEDICAL PROBLEM - General Chief Complaint: Abdominal Pain Stated Complaint: WEAK Time Seen by Provider: 06/30/19 10:57 Source of Information: Reports: Patient History Limitations: Reports: No Limitations - History of Present Illness INITIAL COMMENTS - FREE TEXT/NARRATIVE: Patient is a 59-year-old male status post recent open cholecystectomy 1 week ago. Patient stopped taking his pain meds on Friday hoping that he would be able to go back to work sooner. Patient is having sharp stabbing pain in the right upper quadrant that only lasts for a few seconds when it occurs that was prior prior to surgery and has not abated. He has been having some fever and chills at times he feels diaphoretic and is complaining of feeling short of breath with ambulation this morning. He denies any swelling to his calf and ankles. Patient has developed a rash across his entire abdomen that is erythematous but not itchy and nontender. He denies any dysuria and denies having any cough or chest pain. Duration: Week(s): (one) Location: Reports: Abdomen Quality: Reports: Same as Previous Episode, Stabbing Severity: Severe Improves with: Reports: None Worsens with: Reports: Movement Associated Symptoms: Reports: Diaphoresis, Fever/Chills, Loss of Appetite, Shortness of Breath, Weakness. Denies: Chest Pain, Cough RUQ Pain Score (Numeric/FACES): 3 - Related Data Allergies Allergy/AdvReac Type Severity Reaction Status Date / Time morphine Allergy Hallucinati Verified 06/30/19 10:56 ons ChloraPrep [employer] Allergy rash/Burnin Uncoded 06/24/19 17:31 g Home Meds: Home Meds traZODone 50 mg PO BEDTIME 05/03/14 [History] Lisinopril [Zestril] 10 mg PO BEDTIME 06/18/19 [History] Cyclobenzaprine [Flexeril] 10 mg PO BID #14 tablet 06/27/19 [Rx] Hydrocortisone [Hydrocortisone 2.5% Crm] 1 gm TOP Q1H PRN #1 tube 06/27/19 [Rx] Sennosides/Docusate Sodium [Senna Plus 8.6-50 mg Softgel] 1 each PO DAILY #7 capsule 06/27/19 [Rx] bisacodyL [Dulcolax] 5 mg PO DAILY #7 tablet 06/27/19 [Rx] polyethylene glycoL 3350 [MiraLAX] 17 gm PO DAILY #7 packet 06/27/19 [Rx] Past Medical History - Past Health History Medical/Surgical History: Denies Medical/Surgical History HEENT History: Reports: Other (See Below) Other HEENT History: wears glasses Cardiovascular History: Reports: Blood Clots/VTE/DVT, High Cholesterol, Hypertension Other Cardiovascular History: heart failure at age 47-from a virus (pericarditis ), but resolved, states had blood clot in his rt calf after injury to leg in 1981 or Respiratory History: Reports: None Gastrointestinal History: Reports: Colon Polyp Genitourinary History: Reports: None Musculoskeletal History: Reports: Fracture Other Musculoskeletal History: hx of fx right wrist (rt wrist surgery x3), right ankle (rt ankle surgery x2), toe nails removed on both feet, alpa RTCR Neurological History: Reports: Concussion, Migraines Psychiatric History: Reports: Anxiety Endocrine/Metabolic History: Reports: Obesity/BMI 30+ Hematologic History: Reports: None Immunologic History: Reports: None Oncologic (Cancer) History: Reports: None Dermatologic History: Reports: None - Infectious Disease History Infectious Disease History: Reports: Chicken Pox, Measles - Past Surgical History Musculoskeletal Surgical History: Reports: Arthroscopic Knee, Carpal Tunnel, ORIF, Shoulder Replacement, Shoulder Surgery, Other (See Below) Other Musculoskeletal Surgeries/Procedures:: bilateral RTCR , ORIF right wrist and right ankle (hardware removed), hx of 10 toenails removed as a child ( ingrown), Lt knee arthroscopy, Lt 3rd&4th trigger finger release Social & Family History - Family History Family Medical History: Noncontributory Cardiac: Reports: Bypass, Other (See Below) Other Cardiac Family History: heart disease, quad. bypass Endocrine/Metabolic: Reports: Diabetes, Type I Other Endocrine/Metabolic Family History: adult onset - Caffeine Use Caffeine Use: Reports: Energy Drinks Caffeine Use Comment: 1 drink/day ED ROS GENERAL - Review of Systems Review Of Systems: Comprehensive ROS is negative, except as noted in HPI. ED EXAM, GI/ABD - Physical Exam Exam: See Below Exam Limited By: No Limitations General Appearance: Alert Head: Atraumatic Neck: Normal Inspection, Supple Respiratory/Chest: No Respiratory Distress, Lungs Clear, Normal Breath Sounds Cardiovascular: Regular Rate, Rhythm, No Edema, No JVD GI/Abdominal Exam: Normal Bowel Sounds, Tender. No: Guarding, Rigid, Rebound Back Exam: Normal Inspection Extremities: Normal Inspection, No Pedal Edema Neurological: Alert, Oriented Skin Exam: Erythema, Rash. No: No Rash Course - Vital Signs Text/Narrative:: Patient's white blood cell count is normal. His LFTs are elevated. His findings were discussed with Dr. Madison who will follow up with him on this Friday. She wants me to encourage him to take his pain medicines and use the topical steroid that she had recommended previously. I am encouraging him to use Pepcid twice a day and Benadryl as needed. He is to return to emergency department if worse, vomiting or increased pain. Last Recorded V/S: Last Vital Signs Temp 36.3 C 06/30/19 10:53 Pulse 85 06/30/19 13:27 Resp 18 06/30/19 13:27 BP 132/84 06/30/19 13:27 Pulse Ox 95 06/30/19 13:27 - Orders/Labs/Meds Orders: Active Orders 24 hr Category Date Time Status CULTURE BLOOD [BC] Stat Lab 06/30/19 11:32 Received CULTURE BLOOD [BC] Stat Lab 06/30/19 11:48 Received Sodium Chloride 0.9% [Saline Flush] Med 06/30/19 10:50 Active 10 ml FLUSH ASDIRECTED PRN Sodium Chloride 0.9% [Saline Flush] Med 06/30/19 10:50 Active 2.5 ml FLUSH ASDIRECTED PRN Blood Culture x2 Reflex Set [OM.PC] Stat Oth 06/30/19 11:13 Ordered Saline Lock Insert [OM.PC] Stat Oth 06/30/19 10:50 Ordered Medication Orders Sodium Chloride (Saline Flush) 10 ml FLUSH ASDIRECTED PRN PRN Reason: Keep Vein Open Sodium Chloride (Saline Flush) 2.5 ml FLUSH ASDIRECTED PRN PRN Reason: Keep Vein Open Labs: Laboratory Tests 06/30/19 06/30/19 06/30/19 Range/Units 11:32 11:32 11:32 WBC 6.73 (4.0-11.0) K/uL RBC 6.02 H (4.50-5.90) M/uL Hgb 18.1 H (13.0-17.0) g/dL Hct 51.9 H (38.0-50.0) % MCV 86.2 (80.0-98.0) fL MCH 30.1 (27.0-32.0) pg MCHC 34.9 (31.0-37.0) g/dL RDW Std Deviation 42.0 (28.0-62.0) fl RDW Coeff of Blake 14 (11.0-15.0) % Plt Count 199 (150-400) K/uL MPV 10.70 (7.40-12.00) fL Neut % (Auto) 64.7 (48.0-80.0) % Lymph % (Auto) 21.1 (16.0-40.0) % [place] % (Auto) 8.6 (0.0-15.0) % Eos % (Auto) 5.3 (0.0-7.0) % Baso % (Auto) 0.3 (0.0-1.5) % Neut # (Auto) 4.4 (1.4-5.7) K/uL Lymph # (Auto) 1.4 (0.6-2.4) K/uL [place] # (Auto) 0.6 (0.0-0.8) K/uL Eos # (Auto) 0.4 (0.0-0.7) K/uL Baso # (Auto) 0.0 (0.0-0.1) K/uL Nucleated RBC % 0.0 /100WBC Nucleated RBCs # 0 K/uL Lactate (0.20-2.00) mmol/L Sodium 142 (136-148) mmol/L Potassium 4.4 (3.5-5.1) mmol/L Chloride 101 (98-107) mmol/L Carbon Dioxide 27.3 (21.0-32.0) mmol/L BUN 18 (7.0-18.0) mg/dL Creatinine 1.1 (0.8-1.3) mg/dL Est Cr Clr Drug Dosing 78.91 mL/min Estimated GFR (MDRD) > 60.0 ml/min Glucose 126 H (74-106) mg/dL Calcium 9.2 (8.5-10.1) mg/dL Total Bilirubin 0.6 (0.2-1.0) mg/dL AST 65 H (15-37) IU/L ALT 355 H (14-63) IU/L Alkaline Phosphatase 167 H (46-116) U/L Troponin I < 0.050 (0.000-0.056) ng/mL Total Protein 7.1 (6.4-8.2) g/dL Albumin 3.7 (3.4-5.0) g/dL Globulin 3.4 (2.6-4.0) g/dL Albumin/Globulin Ratio 1.1 (0.9-1.6) Amylase 41 (25-115) U/L Lipase 111 (73-393) U/L Urine Color Urine Appearance Urine pH (5.0-8.0) Ur Specific [place] (1.001-1.035) Urine Protein (NEGATIVE) mg/dL Urine Glucose (UA) (NEGATIVE) mg/dL Urine Ketones (NEGATIVE) mg/dL Urine Occult Blood (NEGATIVE) Urine Nitrite (NEGATIVE) Urine Bilirubin (NEGATIVE) Urine Urobilinogen (<2.0) EU/dL Ur Leukocyte Esterase (NEGATIVE) Urine RBC (0-2/HPF) Urine WBC (0-5/HPF) Ur Epithelial Cells (NONE-FEW) Urine Bacteria (NEGATIVE) Urine Mucus (NONE-MOD) 06/30/19 06/30/19 Range/Units 11:32 12:10 WBC (4.0-11.0) K/uL RBC (4.50-5.90) M/uL Hgb (13.0-17.0) g/dL Hct (38.0-50.0) % MCV (80.0-98.0) fL MCH (27.0-32.0) pg MCHC (31.0-37.0) g/dL RDW Std Deviation (28.0-62.0) fl RDW Coeff of [place] (11.0-15.0) % Plt Count (150-400) K/uL MPV (7.40-12.00) fL Neut % (Auto) (48.0-80.0) % Lymph % (Auto) (16.0-40.0) % [place] % (Auto) (0.0-15.0) % Eos % (Auto) (0.0-7.0) % Baso % (Auto) (0.0-1.5) % Neut # (Auto) (1.4-5.7) K/uL Lymph # (Auto) (0.6-2.4) K/uL [place] # (Auto) (0.0-0.8) K/uL Eos # (Auto) (0.0-0.7) K/uL Baso # (Auto) (0.0-0.1) K/uL Nucleated RBC % /100WBC Nucleated RBCs # K/uL Lactate 1.2 (0.20-2.00) mmol/L Sodium (136-148) mmol/L Potassium (3.5-5.1) mmol/L Chloride (98-107) mmol/L Carbon Dioxide (21.0-32.0) mmol/L BUN (7.0-18.0) mg/dL Creatinine (0.8-1.3) mg/dL Est Cr Clr Drug Dosing mL/min Estimated GFR (MDRD) ml/min Glucose (74-106) mg/dL Calcium (8.5-10.1) mg/dL Total Bilirubin (0.2-1.0) mg/dL AST (15-37) IU/L ALT (14-63) IU/L Alkaline Phosphatase (46-116) U/L Troponin I (0.000-0.056) ng/mL Total Protein (6.4-8.2) g/dL Albumin (3.4-5.0) g/dL Globulin (2.6-4.0) g/dL Albumin/Globulin Ratio (0.9-1.6) Amylase (25-115) U/L Lipase (73-393) U/L Urine Color YELLOW Urine Appearance CLEAR Urine pH 6.0 (5.0-8.0) Ur Specific [place] 1.020 (1.001-1.035) Urine Protein NEGATIVE (NEGATIVE) mg/dL Urine Glucose (UA) NEGATIVE (NEGATIVE) mg/dL Urine Ketones NEGATIVE (NEGATIVE) mg/dL Urine Occult Blood NEGATIVE (NEGATIVE) Urine Nitrite NEGATIVE (NEGATIVE) Urine Bilirubin NEGATIVE (NEGATIVE) Urine Urobilinogen 0.2 (<2.0) EU/dL Ur Leukocyte Esterase NEGATIVE (NEGATIVE) Urine RBC 0-2 (0-2/HPF) Urine WBC 0-1 (0-5/HPF) Ur Epithelial Cells RARE (NONE-FEW) Urine Bacteria RARE (NEGATIVE) Urine Mucus LIGHT (NONE-MOD) Meds: Medications Generic Name Dose Route Start Last Admin Trade Name Bianca PRN Reason Stop Dose Admin Sodium Chloride 10 ml 06/30/19 10:50 Saline Flush FLUSH ASDIRECTED PRN Keep Vein Open Sodium Chloride 2.5 ml 06/30/19 10:50 Saline Flush FLUSH ASDIRECTED PRN Keep Vein Open Discontinued Medications Generic Name Dose Route Start Last Admin Trade Name Bianca PRN Reason Stop Dose Admin Diphenhydramine HCl 25 mg 06/30/19 12:07 06/30/19 12:15 Benadryl IVPUSH 06/30/19 12:08 25 mg ONETIME ONE Administration Famotidine 40 mg 06/30/19 13:28 Pepcid IVPUSH 06/30/19 13:29 ONETIME ONE Fentanyl 50 mcg 06/30/19 11:14 06/30/19 11:44 Fentanyl IVPUSH 06/30/19 11:15 50 mcg ONETIME ONE Administration Fentanyl 50 mcg 06/30/19 12:30 06/30/19 12:37 Fentanyl IVPUSH 06/30/19 12:31 50 mcg ONETIME ONE Administration Hydromorphone HCl 1 mg 06/30/19 13:46 Dilaudid IVPUSH 06/30/19 13:47 ONETIME ONE Sodium Chloride 1,000 mls @ 999 mls/hr 06/30/19 11:11 06/30/19 11:41 Normal Saline IV 06/30/19 12:11 999 mls/hr BOLUS ONE Administration Ondansetron HCl 4 mg 06/30/19 11:11 06/30/19 11:41 Zofran IVPUSH 06/30/19 11:12 4 mg ONETIME ONE Administration Departure - Departure Time of Disposition: 13:49 Disposition: Home, Self-Care 01 Condition: Good Clinical Impression: Contact dermatitis, Postoperative abdominal pain - Discharge Information Instructions: Pain Medicine Instructions, [id number], Contact Dermatitis, [id number] Referrals: Malini Johnson MD [Primary Care Provider] - Forms: ED Department Discharge Additional Instructions: Increase fluids. Pain meds as directed. [id number] Pepcid 1 tablet twice a day or rashes present. Benadryl as directed. Return to ER if worse. Follow-up with surgeon in 2 days as scheduled. Care Plan Goals: The following information is given to patients seen in the emergency department who are being discharged to home. This information is to outline your options for follow-up care. We provide all patients seen in our emergency department with a follow-up referral. The need for follow-up, as well as the timing and circumstances, are variable depending upon the specifics of your emergency department visit. If you don't have a primary care physician on staff, we will provide you with a referral. We always advise you to contact your personal physician following an emergency department visit to inform them of the circumstance of the visit and for follow-up with them and/or the need for any referrals to a consulting specialist. The emergency department will also refer you to a specialist when appropriate. This referral assures that you have the opportunity for follow-up care with a specialist. All of these measure are taken in an effort to provide you with optimal care, which includes your follow-up. Under all circumstances we always encourage you to contact your private physician who remains a resource for coordinating your care. When calling for follow-up care, please make the office aware that this follow-up is from your recent emergency room visit. If for any reason you are refused follow-up, please contact the [facility] Emergency Department at and asked to speak to the emergency department charge nurse. Sepsis Event Note - Evaluation Sepsis Screening Result: No Definite Risk - Focused Exam Vital Signs: Vital Signs Temp Pulse Resp BP Pulse Ox 06/30/19 13:27 85 18 132/84 95 06/30/19 12:38 89 18 142/90 H 94 L 06/30/19 10:53 36.3 C 100 18 148/90 H 96 Date Exam was Performed: 06/30/19 Time Exam was Performed: 13:47 - My Orders Last 24 Hours: My Active Orders 06/30/19 11:13 Blood Culture x2 Reflex Set [OM.PC] Stat 06/30/19 11:32 CULTURE BLOOD [BC] Stat 06/30/19 11:48 CULTURE BLOOD [BC] Stat - Assessment/Plan Last 24 Hours: My Active Orders 06/30/19 11:13 Blood Culture x2 Reflex Set [OM.PC] Stat 06/30/19 11:32 CULTURE BLOOD [BC] Stat 06/30/19 11:48 CULTURE BLOOD [BC] Stat
[2019-06-30] MEDS ORDERED: Ondansetron 4 MG/2 ML SDV IVPUSH ONE (11:11)
[2019-06-30] MEDS ORDERED: Sodium Chloride 0.9% 1,000 ML IV ONE (11:11)
[2019-06-30] MEDS ORDERED: fentaNYL 50 MCG/ML SDV IVPUSH ONE ×2 (11:14→12:30)
[2019-06-30] MEDS ORDERED: diphenhydrAMINE 50 MG/ML SDV IVPUSH ONE (12:07)
[2019-06-30 12:11] LABS: BLOOD UREA NITROGEN,BUN 18 mg/dL (7.0-18.0); CARBON DIOXIDE,CO2 27.3 mmol/L (21.0-32.0); CHLORIDE,CL 101 mmol/L (98-107); GLUCOSE RANDOM 126 mg/dL (74-106); POTASSIUM,K 4.4 mmol/L (3.5-5.1); SODIUM,NA 142 mmol/L (136-148)
[2019-06-30 12:12] LABS: LIPASE 111 U/L (73-393)
[2019-06-30] MEDS ORDERED: Famotidine 20 MG/2 ML SDV IVPUSH ONE (13:28)
[2019-06-30] MEDS ORDERED: HYDROmorphone 2 MG/ML Syringe IVPUSH ONE (13:46)
[2019-06-30 14:26] VITALS: BP 134/84; PULSE 84
== END 2019-06-30 14:26 | disposition home or self-care (01) ==
LOC: MW.ED 10:44
DX: G89.18 Other acute postprocedural pain (principal); R10.11 Right upper quadrant pain; L25.9 Unspecified contact dermatitis, unspecified cause; I11.0 Hypertensive heart disease with heart failure; I50.9 Heart failure, unspecified; E78.00 Pure hypercholesterolemia, unspecified; F41.9 Anxiety disorder, unspecified; E66.9 Obesity, unspecified; Z79.899 Other long term (current) drug therapy; Z88.5 Allergy status to narcotic agent
CPT/HCPCS: 36415; 80053; 81001; 82150; 83605; 83690; 84484; 85025; 87040; 96361; 96374; 96375; 96376; 99283; J1170; J1200; J2405; J3010; J7030; S0028; J3490

== ENCOUNTER 2019-07-01 13:00 | Emergency (ER) | payer OTHER ==
[2019-07-01] MEDS ORDERED: Famotidine 20 MG/2 ML SDV IVPUSH ONE (13:15)
[2019-07-01] MEDS ORDERED: diphenhydrAMINE 50 MG/ML SDV IVPUSH ONE ×3 (13:15→13:35)
[2019-07-01] MEDS ORDERED: Sodium Chloride 0.9% 2.5 ML Syringe FLUSH PRN (13:15)
[2019-07-01] MEDS ORDERED: Sodium Chloride 0.9% 10 ML Syringe FLUSH PRN (13:15)
[2019-07-01] MEDS ORDERED: methylPREDNISolone Sodium Succinate 40 MG/1 ML SDV IVPUSH ONE (13:24)
[2019-07-01] MEDS ORDERED: fentaNYL 50 MCG/ML SDV IVPUSH ONE (13:28)
[2019-07-01] MEDS ORDERED: LORazepam 1 MG Tab PO ONE (14:35)
[2019-07-01 14:37] LABS: BLOOD UREA NITROGEN,BUN 19 mg/dL (7.0-18.0); CARBON DIOXIDE,CO2 30.1 mmol/L (21.0-32.0); CHLORIDE,CL 103 mmol/L (98-107); GLUCOSE RANDOM 111 mg/dL (74-106); POTASSIUM,K 4.1 mmol/L (3.5-5.1); SODIUM,NA 140 mmol/L (136-148)
--- NOTE | 2019-07-01 15:11 | EDM.PDOC ---
ED HPI GENERAL MEDICAL PROBLEM - General Chief Complaint: Skin Complaint Stated Complaint: ALLERGIC REACTION Time Seen by Provider: 07/01/19 13:14 Source of Information: Reports: Patient History Limitations: Reports: No Limitations - History of Present Illness INITIAL COMMENTS - FREE TEXT/NARRATIVE: Patient is a 59-year-old male who was seen by me yesterday for similar symptoms. Patient has recently postop for an open cholecystectomy and is having allergic reaction to unknown agent that was used for skin prep. Patient has similar problem in the past when he had shoulder surgery with him developing a severe rash at that time also. Patient is also complaining of sharp stabbing pain at the upper part of the incision site and it stopped taking his pain medicines yesterday but states he has been taking Dilaudid and trazodone with some relief of his pain symptoms. Patient was discussed yesterday with Dr. Meza who was the surgeon for his cholecystectomy. Patient returns today because his rash has expanded even though he has been taking his Pepcid and Benadryl as directed. Patient is also using topical hydrocortisone without relief of his symptoms. He denies any throat or breathing symptoms. Onset: Unknown/Unsure Duration: Getting Worse Location: Reports: Generalized Quality: Reports: Other (Itchy) Improves with: Reports: None Worsens with: Reports: None Associated Symptoms: Reports: No Other Symptoms Abdomen Pain Score (Numeric/FACES): 6 - Related Data Allergies Allergy/AdvReac Type Severity Reaction Status Date / Time morphine Allergy Hallucinati Verified 07/01/19 13:18 ons ChloraPrep [employer] Allergy rash/Burnin Uncoded 07/01/19 13:18 g Home Meds: Home Meds traZODone 50 mg PO BEDTIME 05/03/14 [History] Lisinopril [Zestril] 10 mg PO BEDTIME 06/18/19 [History] Cyclobenzaprine [Flexeril] 10 mg PO BID #14 tablet 06/27/19 [Rx] Hydrocortisone [Hydrocortisone 2.5% Crm] 1 gm TOP Q1H PRN #1 tube 06/27/19 [Rx] Sennosides/Docusate Sodium [Senna Plus 8.6-50 mg Softgel] 1 each PO DAILY #7 capsule 06/27/19 [Rx] bisacodyL [Dulcolax] 5 mg PO DAILY #7 tablet 06/27/19 [Rx] polyethylene glycoL 3350 [MiraLAX] 17 gm PO DAILY #7 packet 06/27/19 [Rx] Past Medical History - Past Health History Medical/Surgical History: Denies Medical/Surgical History HEENT History: Reports: Other (See Below) Other HEENT History: wears glasses Cardiovascular History: Reports: Blood Clots/VTE/DVT, High Cholesterol, Hypertension Other Cardiovascular History: heart failure at age 47-from a virus (pericarditis ), but resolved, states had blood clot in his rt calf after injury to leg in 1981 or Respiratory History: Reports: None Gastrointestinal History: Reports: Colon Polyp Genitourinary History: Reports: None Musculoskeletal History: Reports: Fracture Other Musculoskeletal History: hx of fx right wrist (rt wrist surgery x3), right ankle (rt ankle surgery x2), toe nails removed on both feet, alpa RTCR Neurological History: Reports: Concussion, Migraines Psychiatric History: Reports: Anxiety Endocrine/Metabolic History: Reports: Obesity/BMI 30+ Hematologic History: Reports: None Immunologic History: Reports: None Oncologic (Cancer) History: Reports: None Dermatologic History: Reports: None - Infectious Disease History Infectious Disease History: Reports: Chicken Pox, Measles - Past Surgical History Musculoskeletal Surgical History: Reports: Arthroscopic Knee, Carpal Tunnel, ORIF, Shoulder Replacement, Shoulder Surgery, Other (See Below) Other Musculoskeletal Surgeries/Procedures:: bilateral RTCR , ORIF right wrist and right ankle (hardware removed), hx of 10 toenails removed as a child ( ingrown), Lt knee arthroscopy, Lt 3rd&4th trigger finger release Social & Family History - Family History Family Medical History: Noncontributory Cardiac: Reports: Bypass, Other (See Below) Other Cardiac Family History: heart disease, quad. bypass Endocrine/Metabolic: Reports: Diabetes, Type I Other Endocrine/Metabolic Family History: adult onset - Tobacco Use Smoking Status *Q: Never Smoker Second Hand Smoke Exposure: No - Caffeine Use Caffeine Use: Reports: Coffee, Soda Caffeine Use Comment: 1 drink/day - Recreational Drug Use Recreational Drug Use: No ED ROS GENERAL - Review of Systems Review Of Systems: Comprehensive ROS is negative, except as noted in HPI. ED EXAM, SKIN/RASH Exam: See Below Exam Limited By: No Limitations General Appearance: Mild Distress Throat/Mouth: Normal Oropharynx, No Airway Compromise Head: Atraumatic Neck: Normal Inspection, Supple Respiratory/Chest: No Respiratory Distress, Lungs Clear, Normal Breath Sounds Cardiovascular: Regular Rate, Rhythm, No Edema, No JVD GI/Abdominal: Normal Bowel Sounds, Soft, Non-Tender Back Exam: Normal Inspection Extremities: Normal Inspection Neurological: Alert, Oriented Psychiatric: Normal Affect, Normal Mood Skin: Erythema, Rash, Other (Severe erythematous [place] rash covering entire abdomen and lower chest and his groin area. Patient has a milder rash on extremities and neck with a slight amount on his face.) Characteristics: Macular, Erythematous Associated features: Warmth, Swelling, Inflammation Course - Vital Signs Text/Narrative:: Patient was seen by Dr. Meza. He was given 60 of Solu-Medrol IV and 50 of Benadryl and 20 mg Pepcid IV. Patient did not feel much better with above interventions I have given him fentanyl 50 mg IV and lorazepam 1 mg p.o. He is feeling somewhat better at this point feels well enough to go home. Is following up with Dr. Meza tomorrow he will return to emergency department if his symptoms are worse today. Last Recorded V/S: Last Vital Signs Temp 36.2 C 07/01/19 13:12 Pulse 87 07/01/19 14:41 Resp 18 07/01/19 14:41 BP 165/88 H 07/01/19 14:41 Pulse Ox 97 07/01/19 14:41 - Orders/Labs/Meds Orders: Active Orders 24 hr Category Date Time Status Sodium Chloride 0.9% [Saline Flush] Med 07/01/19 13:15 Active 10 ml FLUSH ASDIRECTED PRN Sodium Chloride 0.9% [Saline Flush] Med 07/01/19 13:15 Active 2.5 ml FLUSH ASDIRECTED PRN Saline Lock Insert [OM.PC] Stat Oth 07/01/19 13:15 Ordered Medication Orders Sodium Chloride (Saline Flush) 10 ml FLUSH ASDIRECTED PRN PRN Reason: Keep Vein Open Sodium Chloride (Saline Flush) 2.5 ml FLUSH ASDIRECTED PRN PRN Reason: Keep Vein Open Labs: Laboratory Tests 07/01/19 07/01/19 Range/Units 13:50 13:50 WBC 6.98 (4.0-11.0) K/uL RBC 5.46 (4.50-5.90) M/uL Hgb 16.1 (13.0-17.0) g/dL Hct 47.5 (38.0-50.0) % MCV 87.0 (80.0-98.0) fL MCH 29.5 (27.0-32.0) pg MCHC 33.9 (31.0-37.0) g/dL RDW Std Deviation 42.3 (28.0-62.0) fl RDW Coeff of Blake 13 (11.0-15.0) % Plt Count 188 (150-400) K/uL MPV 10.30 (7.40-12.00) fL Neut % (Auto) 61.0 (48.0-80.0) % Lymph % (Auto) 25.4 (16.0-40.0) % Gentry % (Auto) 8.9 (0.0-15.0) % Eos % (Auto) 4.4 (0.0-7.0) % Baso % (Auto) 0.3 (0.0-1.5) % Neut # (Auto) 4.3 (1.4-5.7) K/uL Lymph # (Auto) 1.8 (0.6-2.4) K/uL Gentry # (Auto) 0.6 (0.0-0.8) K/uL Eos # (Auto) 0.3 (0.0-0.7) K/uL Baso # (Auto) 0.0 (0.0-0.1) K/uL Nucleated RBC % 0.0 /100WBC Nucleated RBCs # 0 K/uL Sodium 140 (136-148) mmol/L Potassium 4.1 (3.5-5.1) mmol/L Chloride 103 (98-107) mmol/L Carbon Dioxide 30.1 (21.0-32.0) mmol/L BUN 19 H (7.0-18.0) mg/dL Creatinine 1.1 (0.8-1.3) mg/dL Est Cr Clr Drug Dosing 78.91 mL/min Estimated GFR (MDRD) > 60.0 ml/min Glucose 111 H (74-106) mg/dL Calcium 8.8 (8.5-10.1) mg/dL Total Bilirubin 0.5 (0.2-1.0) mg/dL AST 45 H (15-37) IU/L ALT 228 H (14-63) IU/L Alkaline Phosphatase 144 H (46-116) U/L Total Protein 6.9 (6.4-8.2) g/dL Albumin 3.3 L (3.4-5.0) g/dL Globulin 3.6 (2.6-4.0) g/dL Albumin/Globulin Ratio 0.9 (0.9-1.6) Meds: Medications Generic Name Dose Route Start Last Admin Trade Name Freq PRN Reason Stop Dose Admin Sodium Chloride 10 ml 07/01/19 13:15 Saline Flush FLUSH ASDIRECTED PRN Keep Vein Open Sodium Chloride 2.5 ml 07/01/19 13:15 Saline Flush FLUSH ASDIRECTED PRN Keep Vein Open Discontinued Medications Generic Name Dose Route Start Last Admin Trade Name Freq PRN Reason Stop Dose Admin Diphenhydramine HCl 50 mg 07/01/19 13:35 07/01/19 13:41 Benadryl IVPUSH 07/01/19 13:36 50 mg ONETIME ONE Administration Famotidine 20 mg 07/01/19 13:15 07/01/19 13:41 Pepcid IVPUSH 07/01/19 13:16 20 mg ONETIME ONE Administration Fentanyl 50 mcg 07/01/19 13:28 07/01/19 13:40 Fentanyl IVPUSH 07/01/19 13:29 50 mcg ONETIME ONE Administration Lorazepam 1 mg 07/01/19 14:35 07/01/19 14:40 Ativan PO 07/01/19 14:36 1 mg ONETIME ONE Administration Methylprednisolone Sodium Succinate 60 mg 07/01/19 13:24 07/01/19 13:41 Solu-Medrol IVPUSH 07/01/19 13:25 60 mg ONETIME ONE Administration Departure - Departure Time of Disposition: 15:15 Disposition: Home, Self-Care 01 Condition: Fair Clinical Impression: Contact dermatitis - Discharge Information Instructions: Rash, Contact Dermatitis, [id number] Referrals: Malini Johnson MD [Primary Care Provider] - Additional Instructions: Return to ER if having any throat or breathing symptoms are worse. Follow-up with surgeon tomorrow as scheduled. Medicines as directed. Care Plan Goals: The following information is given to patients seen in the emergency department who are being discharged to home. This information is to outline your options for follow-up care. We provide all patients seen in our emergency department with a follow-up referral. The need for follow-up, as well as the timing and circumstances, are variable depending upon the specifics of your emergency department visit. If you don't have a primary care physician on staff, we will provide you with a referral. We always advise you to contact your personal physician following an emergency department visit to inform them of the circumstance of the visit and for follow-up with them and/or the need for any referrals to a consulting specialist. The emergency department will also refer you to a specialist when appropriate. This referral assures that you have the opportunity for follow-up care with a specialist. All of these measure are taken in an effort to provide you with optimal care, which includes your follow-up. Under all circumstances we always encourage you to contact your private physician who remains a resource for coordinating your care. When calling for follow-up care, please make the office aware that this follow-up is from your recent emergency room visit. If for any reason you are refused follow-up, please contact the [facility] Emergency Department at and asked to speak to the emergency department charge nurse. Sepsis Event Note - Evaluation Sepsis Screening Result: No Definite Risk - Focused Exam Vital Signs: Vital Signs Temp Pulse Resp BP Pulse Ox 07/01/19 14:41 87 18 165/88 H 97 07/01/19 13:12 36.2 C 83 18 153/99 H 98 Date Exam was Performed: 07/01/19 Time Exam was Performed: 15:05 - My Orders Last 24 Hours: My Active Orders 07/01/19 13:15 Sodium Chloride 0.9% [Saline Flush] 10 ml FLUSH ASDIRECTED PRN Sodium Chloride 0.9% [Saline Flush] 2.5 ml FLUSH ASDIRECTED PRN Saline Lock Insert [OM.PC] Stat - Assessment/Plan Last 24 Hours: My Active Orders 07/01/19 13:15 Sodium Chloride 0.9% [Saline Flush] 10 ml FLUSH ASDIRECTED PRN Sodium Chloride 0.9% [Saline Flush] 2.5 ml FLUSH ASDIRECTED PRN Saline Lock Insert [OM.PC] Stat
[2019-07-01 15:45] VITALS: BP 141/87; PULSE 85
== END 2019-07-01 15:45 | disposition home or self-care (01) ==
LOC: MW.ED 13:00
DX: L25.9 Unspecified contact dermatitis, unspecified cause (principal); F41.9 Anxiety disorder, unspecified; I11.0 Hypertensive heart disease with heart failure; I50.9 Heart failure, unspecified; E66.9 Obesity, unspecified; Z68.31 Body mass index [BMI] 31.0-31.9, adult; Z88.5 Allergy status to narcotic agent; Z88.8 Allergy status to other drugs, medicaments and biological substances; Z79.899 Other long term (current) drug therapy
CPT/HCPCS: 36415; 80053; 85025; 96374; 96375; 99283; A9270; J1200; J2920; J3010; S0028; 99282; J3490

== ENCOUNTER 2019-11-08 13:00 | Emergency (ER) | payer OTHER ==
[2019-11-08] MEDS ORDERED: Acetaminophen 500 MG Tab PO ONE (13:18)
[2019-11-08] MEDS ORDERED: fentaNYL 50 MCG/ML SDV IVPUSH ONE (13:18)
[2019-11-08] MEDS ORDERED: Sodium Chloride 0.9% 10 ML Syringe FLUSH PRN (13:21)
[2019-11-08] MEDS ORDERED: Sodium Chloride 0.9% 10 ML SDV IV PRN (13:21)
[2019-11-08] MEDS ORDERED: Sodium Chloride 0.9% 2.5 ML Syringe FLUSH PRN (13:21)
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
--- NOTE | 2019-11-08 14:00 | CT ---
Head CT Technique: Multiple axial sections show the brain were obtained. Intravenous contrast was not utilized. Comparison: No prior intracranial imaging is available. Findings: Ventricles along with basal cisterns and sulci over the convexities are within normal limits for the patient's age. No abnormal parenchymal densities are seen. No evidence of intracranial hemorrhage. No midline shift or mass effect is seen. Bone window settings were reviewed. No acute calvarial abnormality is appreciated. Visualized mastoid sinuses and visualized paranasal sinuses show nothing acute. Minimal carotid artery calcification is seen within the carotid siphon. Impression: 1. Nothing acute is seen on noncontrast head CT study. Diagnostic code #1 Study was dictated in MDT
--- NOTE | 2019-11-08 14:08 | CT ---
CT cervical spine Technique: Multiple axial sections were obtained from above C1 inferiorly to the top of T3. Reconstructed sagittal and coronal images were obtained. Findings: Degenerative change is noted between the dens and anterior arch of C1. Mild disc space narrowing is noted at C6-C7. Anterior osteophytes at C5-C6 and C6-C7. Mild posterior osteophytes are noted at C6-C7. Vertebral body heights are maintained. No bony central or bony neural foraminal stenosis is seen. Mild scattered degenerative apophyseal change is seen. No fracture is appreciated. No subluxation is seen. Impression: 1. Mild degenerative change as noted above. 2. Nothing acute is appreciated on CT study of the cervical spine. Diagnostic code #2 Study was dictated in MDT
[2019-11-08 17:16] VITALS: BP 170/91; PULSE 59
== END 2019-11-08 15:07 | disposition home or self-care (01) ==
LOC: MW.ED 13:00
DX: S06.9X9A Unspecified intracranial injury with loss of consciousness of unspecified duration, initial encounter (principal); I10 Essential (primary) hypertension; E66.9 Obesity, unspecified; Z68.29 Body mass index [BMI] 29.0-29.9, adult; Z88.5 Allergy status to narcotic agent; Z91.09 Other allergy status, other than to drugs and biological substances; I25.10 Atherosclerotic heart disease of native coronary artery without angina pectoris; V85.5XXA Driver of special construction vehicle injured in nontraffic accident, initial encounter
CPT/HCPCS: 70450; 72125; 96374; 99284; A9270; J3010; 99285

== ENCOUNTER 2020-03-31 07:42 | Day surgery (SDC) | payer BC ==
[~2020-03-31 07:42] MED LIST changes: +Lactated Ringers 1,000 ML IV SCH; -Sodium Chloride 0.9% 10 ML SDV IV PRN; -Sodium Chloride 0.9% 10 ML Syringe FLUSH PRN; -Sodium Chloride 0.9% 2.5 ML Syringe FLUSH PRN; -ceFAZolin 2 GM in Premix Bag 1 BAG IV ONE
[2020-03-31] MEDS ORDERED: Propofol 200 MG/20 ML SDV ONE (09:23)
[2020-03-31] MEDS ORDERED: Ketorolac 30 MG/ML SDV ONE (09:23)
[2020-03-31] MEDS ORDERED: Midazolam 1 MG/ML 2 ML SDV ONE (09:23)
[2020-03-31] MEDS ORDERED: Ondansetron 4 MG/2 ML SDV ONE (09:23)
[2020-03-31] MEDS ORDERED: HYDROmorphone 2 MG/ML Syringe ONE (09:23)
[2020-03-31] MEDS ORDERED: Lidocaine 2% 5 ML SDV ONE (09:23)
[2020-03-31] MEDS ORDERED: fentaNYL 100 MCG/2 ML SDV ONE ×2 (09:23→11:03)
[2020-03-31] MEDS ORDERED: Ketamine 500 mg/10 ML MDV ONE (09:24)
[2020-03-31] MEDS ORDERED: Bupivacaine 0.5% 10 ML SDV ONE (09:32)
[2020-03-31] MEDS ORDERED: ceFAZolin 1 GM Vial ONE (09:32)
--- NOTE | 2020-03-31 09:44 | PCM.PREANE ---
Preanesthetic Assessment - Anesthesia/Transfusion/Family Hx Anesthesia History: Prior Anesthesia Without Reaction Other Type of Anesthesia Reaction Comment: Bernardo any known problems in past Family History of Anesthesia Reaction: No Transfusion History: No Prior Transfusion(s) Intubation History: Unknown - Review of Systems General: No Symptoms Pulmonary: No Symptoms Cardiovascular: No Symptoms Gastrointestinal: No Symptoms Neurological: No Symptoms Other: Reports: None - Physical Assessment Vital Signs: Last Vital Signs Temp 36.6 C 03/31/20 09:20 Pulse 71 03/31/20 09:20 Resp 16 03/31/20 09:20 BP 170/95 H 03/31/20 09:20 Pulse Ox 97 03/31/20 09:20 Height: 5 ft 11 in Weight: 113.398 kg ASA Class: 2 Mental Status: Alert & Oriented x3 Airway Class: Mallampati = 2 Dentition: Reports: Normal Dentition Thyro-Mental Finger Breadths: 3 Mouth Opening Finger Breadths: 3 ROM/Head Extension: Full Lungs: Clear to Auscultation, Normal Respiratory Effort Cardiovascular: Regular Rate, Regular Rhythm - Lab Values: Laboratory Last Values SARS-CoV-2 RNA (STEF) NEGATIVE (NEGATIVE) 03/31/20 07:50 - Allergies Allergies/Adverse Reactions: Allergies Allergy/AdvReac Type Severity Reaction Status Date / Time acetaminophen [From [place]] Allergy Hallucinati Verified 03/30/20 14:50 ons hydrocodone [From [place]] Allergy Hallucinati Verified 03/30/20 14:50 ons morphine Allergy Hallucinati Verified 03/30/20 14:51 ons ChloraPrep [employer] Allergy rash/Burnin Uncoded 11/08/19 13:06 g - Blood Blood Available: No - Anesthesia Plan Pre-Op Medication Ordered: None - Acknowledgements Anesthesia Type Planned: General Anesthesia Pt an Appropriate Candidate for the Planned Anesthesia: Yes Alternatives and Risks of Anesthesia Discussed w Pt/Guardian: Yes Pt/Guardian Understands and Agrees with Anesthesia Plan: Yes PreAnesthesia Questionnaire - Past Health History Medical/Surgical History: Denies Medical/Surgical History HEENT History: Reports: Other (See Below) Other HEENT History: wears glasses Cardiovascular History: Reports: Blood Clots/VTE/DVT, High Cholesterol, Hypertension Other Cardiovascular History: heart failure at age 47-from a virus (pericarditis), but resolved, states had blood clot in his rt calf after injury to leg in 1982 or 83 Respiratory History: Reports: None Gastrointestinal History: Reports: Colon Polyp, Other (See Below) (elevated liver enzymes) Genitourinary History: Reports: None Musculoskeletal History: Reports: Fracture Other Musculoskeletal History: hx of fx right wrist (rt wrist surgery x3), right ankle (rt ankle surgery x2), toe nails removed on both feet, alpa RTCR, spur on left hip Neurological History: Reports: Concussion, Migraines Psychiatric History: Reports: Anxiety Endocrine/Metabolic History: Reports: Obesity/BMI 30+ (BMI 34.9), Other (See Below) (metabolic syndrome) Hematologic History: Reports: None Immunologic History: Reports: None Oncologic (Cancer) History: Reports: None Dermatologic History: Reports: Other (See Below) Other Dermatologic History: presently has right axillary abscess, cultures showed MRSA, on antibiotics - Infectious Disease History Infectious Disease History: Reports: None - Past Surgical History Head Surgeries/Procedures: Reports: None HEENT Surgical History: Reports: Tonsillectomy Cardiovascular Surgical History: Reports: None Respiratory Surgical History: Reports: None GI Surgical History: Reports: Cholecystectomy, Colonoscopy, Hernia Repair/Other Other GI Surgeries/Procedures: Hernia Repair with Mesh Male Surgical History: Reports: None Endocrine Surgical History: Reports: None Neurological Surgical History: Reports: None Musculoskeletal Surgical History: Reports: Arthroscopic Knee, Carpal Tunnel, ORIF, Shoulder Replacement, Shoulder Surgery, Other (See Below) Other Musculoskeletal Surgeries/Procedures:: bilateral RTCR , ORIF right wrist and right ankle (hardware removed), hx of 10 toenails removed as a child ( ingrown), Lt knee arthroscopy, Lt 3rd&4th trigger finger release Oncologic Surgical History: Reports: None Dermatological Surgical History: Reports: None - SUBSTANCE USE Tobacco Use Status *Q: Never Tobacco User Recreational Drug Use History: No - HOME MEDS Home Medications: Home Meds traZODone 50 mg PO BEDTIME 05/03/14 [History] Celecoxib 200 mg PO DAILY 03/30/20 [History] Sulfamethoxazole/Trimethoprim [Bactrim Ds Tablet] 1 tab PO BID 03/30/20 [History] atorvaSTATin Calcium [Atorvastatin Calcium] 40 mg PO DAILY 03/30/20 [History] lisinopriL [Lisinopril] 10 mg PO DAILY 03/30/20 [History] - CURRENT (IN HOUSE) MEDS Current Meds: Current Medications Lactated Ringer's (Ringers, Lactated) 1,000 mls @ 100 mls/hr IV ASDIRECTED RANDA Last Admin: 03/31/20 09:37 Dose: 100 mls/hr Documented by: Discontinued Medications Bupivacaine HCl (Sensorcaine-Mpf 0.5%) Confirm Administered Dose 10 ml .ROUTE .STK-MED ONE Stop: 03/31/20 09:33 Cefazolin Sodium (Ancef) Confirm Administered Dose 1 gm .ROUTE .STK-MED ONE Stop: 03/31/20 09:33 Fentanyl (Sublimaze) Confirm Administered Dose 100 mcg .ROUTE .STK-MED ONE Stop: 03/31/20 09:24 Hydromorphone HCl (Dilaudid) Confirm Administered Dose 2 mg .ROUTE .STK-MED ONE Stop: 03/31/20 09:24 Ketamine HCl (Ketalar) Confirm Administered Dose 500 mg .ROUTE .STK-MED ONE Stop: 03/31/20 09:25 Ketorolac Tromethamine (Toradol) Confirm Administered Dose 30 mg .ROUTE .STK-MED ONE Stop: 03/31/20 09:24 Lidocaine (Xylocaine-Mpf 2%) Confirm Administered Dose 5 ml .ROUTE .STK-MED ONE Stop: 03/31/20 09:24 Midazolam HCl (Versed 1 Mg/Ml) Confirm Administered Dose 2 mg .ROUTE .STK-MED ONE Stop: 03/31/20 09:24 Ondansetron HCl (Zofran) Confirm Administered Dose 4 mg .ROUTE .STK-MED ONE Stop: 03/31/20 09:24 Propofol (Diprivan 20 Ml) Confirm Administered Dose 200 mg .ROUTE .STK-MED ONE Stop: 03/31/20 09:24
[2020-03-31] MEDS ORDERED: traMADol 50 MG Tab PO PRN (10:46)
[2020-03-31] MEDS ORDERED: Ketorolac 30 MG/ML SDV IVPUSH PRN (10:46)
[2020-03-31] MEDS ORDERED: Ondansetron 4 MG/2 ML SDV IVPUSH PRN (10:46)
--- NOTE | 2020-03-31 10:54 | PCM.OPNOTE ---
- General Post-Op/Procedure Note Date of Surgery/Procedure: 03/31/20 Operative Procedure(s): Incision and drainage right axillary abscess Pre Op Diagnosis: Right axillary abscess Post-Op Diagnosis: Same Anesthesia Technique: General LMA (ASA II) Primary Surgeon: Kenny Busby Contract Project Manager: Cynthia Mora Fluid Replacement, Intraop: 800 EBL in mLs: 30 Surgical Drain/Tube Type: [place] Condition: Good Free Text/Narrative:: DICTATION 417397 CPT CODE 76800
[2020-03-31] MEDS ORDERED: Lactated Ringers 1,000 ML IV SCH (11:00)
[2020-03-31] MEDS ORDERED: fentaNYL 50 MCG/ML SDV IVPUSH ONE (11:04)
--- NOTE | 2020-03-31 11:16 | PCM.POSTAN ---
POST ANESTHESIA ASSESSMENT - MENTAL STATUS Mental Status: Alert, Oriented - VITAL SIGNS Vital Signs: Last Vital Signs Temp 36.1 C 03/31/20 10:36 Pulse 61 03/31/20 11:08 Resp 15 03/31/20 11:08 BP 145/82 H 03/31/20 11:08 Pulse Ox 92 L 03/31/20 11:08 - RESPIRATORY Respiratory Status: Respiratory Rate WNL, Airway Patent, O2 Saturation Stable - CARDIOVASCULAR CV Status: Pulse Rate WNL, Blood Pressure Stable - GASTROINTESTINAL GI Status: No Symptoms - PAIN Pain Score: 4 - POST OP HYDRATION Hydration Status: Adequate & Stable - OBSERVATIONS Free Text/Narrative:: No anesthesia problems
[2020-03-31] MEDS ORDERED: HYDROmorphone 2 MG/ML Syringe IVPUSH ONE (11:26)
--- NOTE | 2020-03-31 11:58 | PCM48HPAN ---
Post Anesthesia Note - EVALUATION WITHIN 48HRS OF ANESTHETIC Vital Signs in Normal Range: Yes Patient Participated in Evaluation: Yes Respiratory Function Stable: Yes Airway Patent: Yes Cardiovascular Function Stable: Yes Hydration Status Stable: Yes Pain Control Satisfactory: Yes Nausea and Vomiting Control Satisfactory: Yes Mental Status Recovered: Yes Vital Signs: Last Vital Signs Temp 36.1 C 03/31/20 10:36 Pulse 61 03/31/20 11:08 Resp 15 03/31/20 11:08 BP 145/82 H 03/31/20 11:08 Pulse Ox 92 L 03/31/20 11:08 - COMMENTS/OBSERVATIONS Free Text/Narrative:: No anesthesia problems
--- NOTE | 2020-03-31 12:43 | OR ---
SURGEON: Kenny Busby M.D. DATE OF PROCEDURE: 03/31/2020 OPERATION PERFORMED: Incision and drainage of right axillary abscess. PRIMARY SURGEON: Kenny Busby M.D. [employer] FLATBED DRIVER: Business Consultant: SAULO Mustafa student. ANESTHESIA: General LMA. ASA CLASSIFICATION: II. PREOPERATIVE DIAGNOSIS: Right axillary abscess. POSTOPERATIVE DIAGNOSIS: Right axillary abscess. ESTIMATED BLOOD LOSS: 30 mL. INTRAOPERATIVE FLUID REPLACEMENT: 800 mL of crystalloid. DESCRIPTION OF PROCEDURE: The patient was taken to the operating room and placed on the operating table in the supine position. Time-out was called for appropriate identification of the patient and procedure. Sequential compression boots were placed. Following satisfactory attainment of general anesthesia with placement of an LMA, the right axilla was prepped with Betadine solution. Sterile drapes were applied. Skin incision was made directly over the large abscess cavity. Aerobic and anaerobic cultures and Gram stain were obtained. All loculations were digitally broken up. Hemostasis was obtained with the use of electrocautery. The wound was irrigated with 2 L of saline. 10 cc of 0.5% Marcaine was injected into the wound edges. A 1 inch [place] drain was placed into the incision and secured with a 2-0 silk suture. Superiorly and inferiorly to that two 2-0 nylon sutures were placed and loosely secured. Sponge, needle, and instrument counts were all correct. The wound was dressed with fluffs and an ABD, held in place with Mefix tape. The patient tolerated the procedure well. Following emergence from anesthesia and extubation, he was taken to recovery room in satisfactory condition. DEVORAH / DA /[id number] ESTUARDO
[2020-03-31 14:09] VITALS: BP 132/64; PULSE 60
== END 2020-03-31 13:55 | disposition home or self-care (01) ==
LOC: MW.SDS 07:42 → EEVIPCON 07:42 → MW.SDS 13:55
PROVIDERS: ATTEND Surgery
DX: L02.411 Cutaneous abscess of right axilla (principal); F41.9 Anxiety disorder, unspecified; E78.5 Hyperlipidemia, unspecified; I10 Essential (primary) hypertension; G47.00 Insomnia, unspecified; E66.9 Obesity, unspecified; G43.909 Migraine, unspecified, not intractable, without status migrainosus; Z01.812 Encounter for preprocedural laboratory examination; Z20.828 Contact with and (suspected) exposure to other viral communicable diseases; R73.03 Prediabetes; Z90.49 Acquired absence of other specified parts of digestive tract; Z88.5 Allergy status to narcotic agent; Z88.8 Allergy status to other drugs, medicaments and biological substances; Z79.899 Other long term (current) drug therapy; Z98.890 Other specified postprocedural states; Z68.34 Body mass index [BMI] 34.0-34.9, adult
CPT/HCPCS: 10060; 87070; 87075; 87077; 87186; 87205; 87635; A9270; J0131; J1170; J2001; J2250; J2704; J3010; J3490; J7120; 00400; J0690; J1885; J2405; U0002

== ENCOUNTER 2020-05-05 11:33 | Observation (INO) | payer BC ==
[2020-05-05] MEDS ORDERED: fentaNYL 100 MCG/2 ML SDV ONE (11:59)
--- NOTE | 2020-05-05 12:00 | PCM.PREANE ---
Preanesthetic Assessment - Anesthesia/Transfusion/Family Hx Anesthesia History: Prior Anesthesia Without Reaction Other Type of Anesthesia Reaction Comment: Bernardo any known problems in past Family History of Anesthesia Reaction: No Transfusion History: No Prior Transfusion(s) Intubation History: Unknown - Review of Systems General: No Symptoms Pulmonary: No Symptoms Cardiovascular: No Symptoms Gastrointestinal: No Symptoms Neurological: No Symptoms Other: Reports: None - Physical Assessment Height: 5 ft 11 in Weight: 113.398 kg ASA Class: 2 Mental Status: Alert & Oriented x3 Airway Class: Mallampati = 2 Dentition: Reports: Normal Dentition Thyro-Mental Finger Breadths: 3 Mouth Opening Finger Breadths: 3 ROM/Head Extension: Full Lungs: Clear to Auscultation, Normal Respiratory Effort Cardiovascular: Regular Rate, Regular Rhythm - Lab Values: Laboratory Last Values SARS-CoV-2 RNA (STEF) POSITIVE (NEGATIVE) H 05/05/20 09:57 - Allergies Allergies/Adverse Reactions: Allergies Allergy/AdvReac Type Severity Reaction Status Date / Time acetaminophen [From [place]] Allergy Hallucinati Verified 05/04/20 08:47 ons hydrocodone [From [place]] Allergy Hallucinati Verified 05/04/20 08:47 ons morphine Allergy Hallucinati Verified 05/04/20 08:47 ons ChloraPrep [employer] Allergy rash/Burnin Uncoded 11/08/19 13:06 g - Blood Blood Available: No - Anesthesia Plan Pre-Op Medication Ordered: None - Acknowledgements Anesthesia Type Planned: Spinal (general anesthesia back-up plan) Pt an Appropriate Candidate for the Planned Anesthesia: Yes Alternatives and Risks of Anesthesia Discussed w Pt/Guardian: Yes Pt/Guardian Understands and Agrees with Anesthesia Plan: Yes PreAnesthesia Questionnaire - Past Health History Medical/Surgical History: Denies Medical/Surgical History HEENT History: Reports: Other (See Below) Other HEENT History: wears glasses Cardiovascular History: Reports: Blood Clots/VTE/DVT, High Cholesterol, Hypertension Other Cardiovascular History: heart failure at age 47-from a virus (pericarditis), but resolved, states had blood clot in his rt calf after injury to leg in 1981 or Respiratory History: Reports: None Gastrointestinal History: Reports: Colon Polyp, Other (See Below) Genitourinary History: Reports: None Musculoskeletal History: Reports: Fracture Other Musculoskeletal History: hx of fx right wrist (rt wrist surgery x3), right ankle (rt ankle surgery x2), toe nails removed on both feet, alpa RTCR, spur on left hip Neurological History: Reports: Concussion, Migraines Psychiatric History: Reports: Anxiety Endocrine/Metabolic History: Reports: Obesity/BMI 30+, Other (See Below) Hematologic History: Reports: None Immunologic History: Reports: None Oncologic (Cancer) History: Reports: None Dermatologic History: Reports: Other (See Below) Other Dermatologic History: presently has right lower leg abscess, on antibiotics - Infectious Disease History Infectious Disease History: Reports: None - Past Surgical History Head Surgeries/Procedures: Reports: None HEENT Surgical History: Reports: Tonsillectomy Cardiovascular Surgical History: Reports: None Respiratory Surgical History: Reports: None GI Surgical History: Reports: Cholecystectomy, Colonoscopy, Hernia Repair/Other Other GI Surgeries/Procedures: Hernia Repair with Mesh Male Surgical History: Reports: None Endocrine Surgical History: Reports: None Neurological Surgical History: Reports: None Musculoskeletal Surgical History: Reports: Arthroscopic Knee, Carpal Tunnel, ORIF, Shoulder Surgery, Other (See Below) Other Musculoskeletal Surgeries/Procedures:: bilateral RTCR , ORIF right wrist and right ankle (hardware removed), hx of 10 toenails removed as a child (ingrown), Lt knee arthroscopy, Lt 3rd&4th trigger finger release Oncologic Surgical History: Reports: None Dermatological Surgical History: Reports: Other (See Below) - SUBSTANCE USE Tobacco Use Status *Q: Never Tobacco User Recreational Drug Use History: No - HOME MEDS Home Medications: Home Meds traZODone 50 mg PO BEDTIME 05/03/14 [History] Celecoxib 200 mg PO DAILY 03/30/20 [History] Sulfamethoxazole/Trimethoprim [Bactrim Ds Tablet] 1 tab PO BID 03/30/20 [History] atorvaSTATin Calcium [Atorvastatin Calcium] 40 mg PO DAILY 03/30/20 [History] lisinopriL [Lisinopril] 10 mg PO DAILY 03/30/20 [History] Acetaminophen [Tylenol Extra Strength] 2 tab PO ASDIRECTED PRN 05/04/20 [History] - CURRENT (IN HOUSE) MEDS Current Meds: Current Medications Fentanyl (Sublimaze) 50 - 100 mcg IVPUSH Q5M PRN PRN Reason: Pain (severe 7-10) Lactated Ringer's (Ringers, Lactated) 1,000 mls @ 125 mls/hr IV ASDIRECTED RANDA
[2020-05-05] MEDS: Lactated Ringers 1,000 ML IV SCH (12:26)
[2020-05-05] MEDS: fentaNYL 100 MCG/2 ML SDV IVPUSH PRN ×4 (12:26→14:01)
[2020-05-05 14:06] LABS: BLOOD UREA NITROGEN,BUN 17 mg/dL (7.0-18.0); CARBON DIOXIDE,CO2 30.3 mmol/L (21.0-32.0); CHLORIDE,CL 103 mmol/L (98-107); GLUCOSE RANDOM 98 mg/dL (74-106); POTASSIUM,K 4.1 mmol/L (3.5-5.1); SODIUM,NA 139 mmol/L (136-148)
[2020-05-05] MEDS ORDERED: Bupivacaine 0.5% 10 ML SDV ONE (14:57)
[2020-05-05] MEDS ORDERED: ceFAZolin 1 GM Vial ONE (14:57)
[2020-05-05] MEDS ORDERED: Propofol 200 MG/20 ML SDV ONE ×2 (15:12→15:56)
[2020-05-05] MEDS ORDERED: Midazolam 1 MG/ML 2 ML SDV ONE ×3 (15:12→15:35)
[2020-05-05] MEDS ORDERED: Ondansetron 4 MG/2 ML SDV ONE (15:14)
[2020-05-05] MEDS ORDERED: Ketorolac 30 MG/ML SDV ONE (15:14)
[2020-05-05] MEDS ORDERED: fentaNYL 100 MCG/2 ML SDV PRN (16:22)
[2020-05-05] MEDS ORDERED: traMADol 50 MG Tab PO PRN ×2 (16:24→18:42)
--- NOTE | 2020-05-05 16:27 | PCM.OPNOTE ---
- General Post-Op/Procedure Note Date of Surgery/Procedure: 05/05/20 Operative Procedure(s): Incision and drainage, right lateral leg abscess Pre Op Diagnosis: Right posterior lateral leg abscess Post-Op Diagnosis: Same Anesthesia Technique: Spinal (ASA II) Primary Surgeon: Kenny Busby Fluid Replacement, Intraop: 800 EBL in mLs: 10 Surgical Drain/Tube Type: [place] Condition: Good Free Text/Narrative:: DICTATION [id number] CPT CODE 92532
[2020-05-05] MEDS ORDERED: Lactated Ringers 1,000 ML IV SCH (16:30)
--- NOTE | 2020-05-05 16:42 | PCM.POSTAN ---
POST ANESTHESIA ASSESSMENT - MENTAL STATUS Mental Status: Alert - VITAL SIGNS Vital Signs: Last Vital Signs Temp 37.0 C 05/05/20 12:00 Pulse 98 05/05/20 16:30 Resp 18 05/05/20 16:30 BP 114/78 05/05/20 16:30 Pulse Ox 94 L 05/05/20 16:30 - RESPIRATORY Respiratory Status: Respiratory Rate WNL - CARDIOVASCULAR CV Status: Pulse Rate WNL - GASTROINTESTINAL GI Status: No Symptoms - POST OP HYDRATION Hydration Status: Adequate & Stable
--- NOTE | 2020-05-05 18:29 | OR ---
SURGEON: Kenny Busby M.D. DATE OF PROCEDURE: 05/05/2020 OPERATION PERFORMED: Incision and drainage, right leg abscess. PRIMARY SURGEON: Kenny Busby MD ANESTHESIA: Spinal. ASA CLASSIFICATION: II. PREOPERATIVE DIAGNOSIS: Right leg abscess. POSTOPERATIVE DIAGNOSIS: Right leg abscess. ESTIMATED BLOOD LOSS: 10 mL. INTRAOPERATIVE FLUID REPLACEMENT: 800 mL of crystalloid. DESCRIPTION OF PROCEDURE: The patient was taken to the operating room, placed on the operating table in a sitting position. It should be noted that he tested positive for the SARS-2-CoV virus today, so all appropriate precautions were taken including the use of face cerda and N95s. Spinal anesthesia was induced. The patient was then placed in the supine position and the right lower extremity prepped with Betadine solution. Sterile drapes were applied. Skin incision was made directly over the abscess and deepened through the subcutaneous tissue. Aerobic and anaerobic cultures were obtained as well as Gram stain. The wound was debrided. No significant amount of purulent or watery material was noted, but care was taken to break up all loculations. Small bleeding sites were electrocoagulated. The wound was then irrigated with several 100 mL of saline solution. The wound was further inspected for hemostasis and again bleeding sites were electrocoagulated. Half- inch [place] drain was brought to the operating table and cut to appropriate length. Two segments of the [place] drain were placed into the wound and secured with 2-0 nylon sutures. Wound was further inspected for hemostasis. No other bleeding was noted and no other loculations were identified. The debridement was all skin and subcutaneous tissue down to the fascia. We did not extend into the fascia. The wound was then dressed with 4 x 4's and ABD, held in place with 4-inch Robbi wrap. The patient tolerated the procedure well. The anticipation is that he will be discharged tonight after the spinal anesthetic wears off. ANDEWAY / MODL /[id number] MTDDominic
[2020-05-05] MEDS ORDERED: ceFAZolin 1 GM in Premix Bag 1 BAG IV SCH (20:00)
[2020-05-05] MEDS: ceFAZolin 1 GM in Premix Bag 1 BAG IV SCH (23:00)
[2020-05-05] MEDS ORDERED: Ketorolac 30 MG/ML SDV IVPUSH ONE (23:11)
[2020-05-05] MEDS ORDERED: traZODone 50 MG Tab PO ONE (23:15)
[2020-05-05] MEDS: Acetaminophen/oxyCODONE 325-5 MG Tab PO PRN (23:29)
[2020-05-06] MEDS: ceFAZolin 1 GM in Premix Bag 1 BAG IV SCH ×2 (04:27→09:01)
[2020-05-06] MEDS: Acetaminophen/oxyCODONE 325-5 MG Tab PO PRN (04:36)
--- NOTE | 2020-05-06 06:19 | PCM48HPAN ---
Post Anesthesia Note - EVALUATION WITHIN 48HRS OF ANESTHETIC Vital Signs in Normal Range: Yes Patient Participated in Evaluation: Yes Respiratory Function Stable: Yes Airway Patent: Yes Hydration Status Stable: Yes Pain Control Satisfactory: Yes Nausea and Vomiting Control Satisfactory: Yes Mental Status Recovered: Yes Vital Signs: Last Vital Signs Temp 36.8 C 05/06/20 04:20 Pulse 74 05/06/20 04:20 Resp 18 05/06/20 04:20 BP 139/82 05/06/20 04:20 Pulse Ox 94 L 05/06/20 04:20
[2020-05-06 08:38] VITALS: BP 143/76; PULSE 73
[2020-05-06] MEDS ORDERED: Ketorolac 30 MG/ML SDV IVPUSH ONE (08:45)
[2020-05-06] MEDS: Lactated Ringers 1,000 ML IV SCH (09:00)
--- NOTE | 2020-05-06 10:29 | PCM.SN.2 ---
- Free Text/Narrative Note: Patient is feeling much better. Has recovered from spinal anesthesia with good CMS to lower extremities. Feel pain is well controlled. Dressings are dry. Patient is stable for discharge and will follow up with me on 05/09. Rx was sent yesterday and patient feels that will be adequate.
== END 2020-05-06 10:37 ==
LOC: MW.SDS 11:33 → MW.MS 18:30
PROVIDERS: ADMIT Surgery; ATTEND Surgery
DX: L02.415 Cutaneous abscess of right lower limb (principal); U07.1 COVID-19; E78.00 Pure hypercholesterolemia, unspecified; I10 Essential (primary) hypertension; F41.9 Anxiety disorder, unspecified; Z98.890 Other specified postprocedural states; Z88.5 Allergy status to narcotic agent; Z88.8 Allergy status to other drugs, medicaments and biological substances; Z79.899 Other long term (current) drug therapy
CPT/HCPCS: 10060; 36415; 80053; 85025; 87070; 87075; 87077; 87186; 87205; 87635; 96365; 96366; 96375; 96376; A9270; G0378; J0690; J1885; J2250; J2405; J2704; J3010; J3490; J7120; 00400; U0002

== ENCOUNTER 2022-01-07 14:25 | Emergency (ER) | payer BC, OTHER ==
[2022-01-07] MEDS ORDERED: HYDROmorphone 1 MG/ML Syringe IM ONE (15:41)
[2022-01-07] MEDS ORDERED: Ondansetron 4 MG Tab.DIS PO ONE (15:42)
[2022-01-07 19:45] VITALS: BP 145/74; PULSE 61
== END 2022-01-07 16:14 | disposition home or self-care (01) ==
LOC: MW.ED 14:25
DX: T25.221A Burn of second degree of right foot, initial encounter (principal); I11.0 Hypertensive heart disease with heart failure; I50.9 Heart failure, unspecified; E66.9 Obesity, unspecified; Z68.30 Body mass index [BMI] 30.0-30.9, adult; Z88.6 Allergy status to analgesic agent; Z88.5 Allergy status to narcotic agent; Z88.8 Allergy status to other drugs, medicaments and biological substances; Z79.899 Other long term (current) drug therapy; Z90.49 Acquired absence of other specified parts of digestive tract; X19.XXXA Contact with other heat and hot substances, initial encounter
CPT/HCPCS: 96372; 99283; A9270; J1170

== ENCOUNTER 2023-02-01 19:30 | Emergency (ER) | payer BC, OTHER ==
[2023-02-01] MEDS ORDERED: traMADol 50 MG Tab PO ONE (21:05)
[2023-02-01] MEDS ORDERED: Amoxicillin/Clavulanate K 875-125 MG Tab PO ONE (21:05)
[2023-02-01 21:31] VITALS: BP 169/98; PULSE 68
== END 2023-02-01 21:42 | disposition home or self-care (01) ==
LOC: MW.ED 19:30
DX: H66.013 Acute suppurative otitis media with spontaneous rupture of ear drum, bilateral (principal); I11.0 Hypertensive heart disease with heart failure; I50.9 Heart failure, unspecified; E66.9 Obesity, unspecified; Z68.32 Body mass index [BMI] 32.0-32.9, adult; Z88.6 Allergy status to analgesic agent; Z88.5 Allergy status to narcotic agent; Z88.8 Allergy status to other drugs, medicaments and biological substances
CPT/HCPCS: 99282; A9270; 99283

== ENCOUNTER 2023-03-19 10:40 | Emergency (ER) | payer OTHER ==
[2023-03-19] MEDS ORDERED: Sodium Chloride 0.9% 10 ML Syringe FLUSH PRN (10:45)
[2023-03-19] MEDS ORDERED: Sodium Chloride 0.9% 2.5 ML Syringe FLUSH PRN (10:45)
[2023-03-19] MEDS ORDERED: Ondansetron 4 MG/2 ML SDV IVPUSH ONE (10:45)
[2023-03-19] MEDS ORDERED: Lidocaine 4% 1 each Patch TOP ONE (10:45)
[2023-03-19] MEDS ORDERED: Sodium Chloride 0.9% 1,000 ML IV ONE (10:45)
[2023-03-19 11:10] LABS: BASOPHILS ABSOLUTE AUTO 0.02 K/uL (0.00-0.20); BASOPHILS PERCENT AUTO 0.3 % (0.0-1.0); EOSINOPHILS ABSOLUTE AUTO 0.05 K/uL (0.00-0.45); EOSINOPHILS PERCENT AUTO 0.7 % (0.0-6.0); HEMATOCRIT 49.1 % (42.0-52.0); HEMOGLOBIN 17.2 g/dL (14.0-18.0); IMMATURE GRAN ABSOLUTE AUTO 0.04 K/uL (0.00-0.05); IMMATURE GRAN PERCENT AUTO 0.5 % (0.0-0.4); LYMPHOCYTES ABSOLUTE AUTO 2.01 K/uL (1.00-4.80); LYMPHOCYTES PERCENT AUTO 26.6 % (24.0-44.0); MEAN CORPUSCULAR HEMOGLOBIN 29.5 pg (28.0-32.0); MEAN CORPUSCULAR VOLUME 84.1 fL (83.0-99.0); MEAN PLATELET VOLUME 10.3 fL (9.4-12.4); MONOCYTES ABSOLUTE AUTO 0.61 K/uL (0.00-0.80); MONOCYTES PERCENT AUTO 8.1 % (0.0-8.0); NEUTROPHILS ABSOLUTE AUTO 4.84 K/uL (1.80-7.70); NEUTROPHILS PERCENT AUTO 63.8 % (41.0-71.0); PLATELET COUNT,PLT 170 K/uL (150-400); RED BLOOD CELL COUNT 5.84 M/uL (4.52-5.90); WHITE BLOOD CELL COUNT,WBC 7.57 K/uL (3.9-11.3)
[2023-03-19] MEDS ORDERED: Iopamidol 755 MG/ML 500 ML Multipack Bottle IVPUSH STA (11:18)
[2023-03-19 11:48] LABS: ALBUMIN 3.9 g/dL (3.4-5.0); BILIRUBIN TOTAL 0.3 mg/dL (0.2-1.0); CALCIUM 9.2 mg/dL (8.5-10.1); CARBON DIOXIDE,CO2 27.8 mmol/L (21.0-32.0); CREATININE 1.2 mg/dL (0.8-1.3); EST CRCL DRUG DOSING (CG) 69.72 mL/min; PROTEIN TOTAL,TP 7.7 g/dL (6.4-8.2)
[2023-03-19 11:51] LABS: INR 1.02 (0.86-1.11)
[2023-03-19] MEDS ORDERED: Ketorolac 30 MG/ML SDV IVPUSH ONE (13:06)
[2023-03-19 15:56] VITALS: BP 145/87; PULSE 60
== END 2023-03-19 15:57 | disposition home or self-care (01) ==
LOC: MW.ED 10:40
DX: M54.2 Cervicalgia (principal); M62.838 Other muscle spasm; I10 Essential (primary) hypertension; E66.9 Obesity, unspecified; Z68.32 Body mass index [BMI] 32.0-32.9, adult; Z88.5 Allergy status to narcotic agent; Z88.8 Allergy status to other drugs, medicaments and biological substances; V89.2XXA Person injured in unspecified motor-vehicle accident, traffic, initial encounter
CPT/HCPCS: 36415; 70450; 71260; 72125; 74177; 80053; 83690; 84484; 85025; 85610; 96361; 96374; 96375; 96376; 99285; A9270; J1885; J2405; J3360; J3490; J7030; Q9967; 72128-26; 72131-26; 93010; 99284